=== PATIENT | female | born 1940 | race Caucasian/White ===

== ENCOUNTER → 2016-04-24 | Outpatient (CLI) | payer MEDICARE, BC | LOC: MW.CHIM 08:00 | PROVIDERS: ATTEND Internal Medicine | DX: F03.90 Unspecified dementia, unspecified severity, without behavioral disturbance, psychotic disturbance, mood disturbance, and anxiety (principal); F32.9 Major depressive disorder, single episode, unspecified; F41.9 Anxiety disorder, unspecified; H00.016 Hordeolum externum left eye, unspecified eyelid | CPT/HCPCS: 99214 ==

== ENCOUNTER → 2016-04-28 | Outpatient (CLI) | payer MEDICARE, BC | LOC: MW.CHIM 08:00 | PROVIDERS: ATTEND Internal Medicine | DX: J44.1 Chronic obstructive pulmonary disease with (acute) exacerbation (principal) | CPT/HCPCS: 96372; G0463; J1030 ==

== ENCOUNTER 2016-05-02 10:05 | Inpatient (IN) | payer MEDICARE, BC ==
[2016-05-02] MEDS ORDERED: Sodium Chloride 0.9% 2.5 ML Syringe FLUSH PRN (10:26)
[2016-05-02] MEDS ORDERED: Sodium Chloride 0.9% 10 ML Syringe FLUSH PRN (10:26)
[2016-05-02] MEDS ORDERED: Albuterol/Ipratropium 3.0-0.5 MG/3 ML Neb Soln NEB ONE (10:26)
--- NOTE | 2016-05-02 10:33 | EDM.PDOC ---
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 She has had a cough for several days which she feels that she's congested with but can't get the phlegm up. She doesn't feel more short of breath and she has oxygen at home to use when necessary. She has nebulizer treatments and also takes theophylline. Patient denies any cardiac history and has no chest pain she has no sore throat no runny nose no nausea or vomiting or abdominal pain. She did have 2 loose stools last evening but none today. She has no urinary complaints no rashes and she is not dizzy or lightheaded. The patient did get her influenza shot this year in November but her daughter states that she has had influenza as has other family members and that is a concern. Review of systems: As per history of present illness and below otherwise all systems reviewed and negative. Past medical history: As per history of present illness and as reviewed below otherwise noncontributory. Surgical history: As per history of present illness and as reviewed below otherwise noncontributory. Social history: No reported history of drug or alcohol abuse. Family history: As per history of present illness and as reviewed below otherwise noncontributory. Physical exam: General: Well-developed well-nourished female who speaks clearly without breathlessness or nasal quality to voice. Vital signs been reviewed by me. HEENT: Atraumatic, normocephalic, pupils reactive, negative for conjunctival pallor or scleral icterus, mucous membranes moist, throat clear, neck supple, nontender, trachea midline. No cervical adenopathy no thyromegaly Lungs: Somewhat tight air exchange more in the bases with some coarse breath sounds and scattered wheezes but no work or breathing or sensory muscle use breath sounds equal bilaterally, chest nontender. Heart: S1S2, regular, negative for clicks, rubs, or JVD. Abdomen: Soft, nondistended, nontender. Negative for masses or hepatosplenomegaly. Negative for costovertebral tenderness. Skin: Normal turgor no evidence of any rashes or lesions visibly Genitourinary: Deferred. Rectal: Deferred. Extremities: Atraumatic, negative for cords or calf pain. Neurovascular unremarkable. Neuro: Awake, alert, oriented. Cranial nerves II through XII unremarkable. Cerebellum unremarkable. Motor and sensory unremarkable throughout. Exam nonfocal. Diagnostics: Chest x-ray CBC CMP lactic acid blood cultures UA urine culture if indicated influenza swab Therapeutics: Duo neb IV O2 monitor Solu- Medrol I discussed with the patient and family at bedside testing results and that with the patient's COPD, mild hypoxia on admission 92%, and influenza B with his intractable spastic cough we will pursue observation admission. I will discuss the case with Dr. Shetty. 1228: Case was discussed with who accepts the patient for admission and the patient is agreeable. Impression: Influenza B with COPD exacerbation and mild hypoxia Definitive disposition and diagnosis as appropriate pending reevaluation and review of above. - Related Data Allergies/ADRs: Allergies Allergy/AdvReac Type Severity Reaction Status Date / Time cetirizine HCl [From Zyrtec] Allergy Other Verified 10/22/15 13:24 haloperidol [From Haldol] Allergy Change Verified 10/22/15 13:24 Mental Status haloperidol lactate Allergy Change Verified 10/22/15 13:24 [From Haldol] Mental Status Latex, Natural Rubber Allergy Other Verified 10/22/15 13:24 levofloxacin [From Levaquin] Allergy Other Verified 10/22/15 13:24 lorazepam [From Ativan] Allergy Respiratory Verified 10/22/15 13:24 Depression morphine Allergy Respiratory Verified 10/22/15 13:24 Depression Home Meds: Home Meds ALPRAZolam [Xanax] 0.5 tab PO ASDIRECTED PRN 07/17/14 [History] Albuterol [Ventolin HFA] 8 gm INH Q6H PRN 07/17/14 [History] Albuterol/Ipratropium [DuoNeb 3.0-0.5 MG/3 ML] 3 ml NEB Q6HRRT PRN 07/17/14 [ History] Ca Carbonate/Vitamin D3/Vit K [Citracal Soft Chew] 1 each PO BEDTIME 07/17/14 [ History] Fluticasone/Salmeterol [Advair 250-50] 1 puff INH BID PRN 07/17/14 [History] Lansoprazole [Prevacid] 15 mg PO DAILY 07/17/14 [History] Memantine HCl [Namenda Xr] 21 mg PO DAILY 07/17/14 [History] Montelukast [Singulair] 10 mg PO BEDTIME 07/17/14 [History] Multivit-Min/FA/Lycopene/Lut [Centrum Silver Tablet] 1 each PO DAILY 07/17/14 [ History] Nictrol Inhaler 1 puff INH ASDIRECTED PRN 07/17/14 [History] Sertraline [Zoloft] 75 mg PO DAILY 07/17/14 [History] Theophylline [Theophylline Anhydrous] 200 mg PO DAILY 07/17/14 [History] Past Medical History Respiratory History: Reports: Asthma, COPD, Pneumonia, recurrent Gastrointestinal History: Reports: Other (see below) Other Gastrointestinal History: acid reflux 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: Neurological History: Reports: Alzheimers disease Psychiatric History: Reports: Anxiety, Depression - Infectious Disease History Infectious Disease History: Reports: Chicken pox - Past Surgical History Head Surgeries/Procedures: Reports: None HEENT Surgical History: Reports: Tonsillectomy Other GI Surgeries/Procedures: hemmorhoid Social & Family History - Family History Cardiac: Reports: [place] Psychiatric: Reports: Anxiety, Depression Endocrine/Metabolic: Reports: Diabetes, type II - Tobacco Use Smoking Status *Q: Former Smoker Years of Tobacco use: 30 Used Tobacco, but Quit: Yes Month Tobacco Last Used: 1yr Second Hand Smoke Exposure: No - Caffeine Use Caffeine Use: Reports: Coffee - Recreational Drug Use Recreational Drug Use: No - Living Situation & Occupation 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 ED EXAM, GENERAL - Physical Exam Exam: See Below (See dictation) Course - Vital Signs Last Recorded V/S: Last Vital Signs Temp 37.1 C 05/02/16 10:14 Pulse 100 05/02/16 10:14 Resp 18 05/02/16 10:14 BP 139/64 05/02/16 10:14 Pulse Ox 95 05/02/16 10:43 - Orders/Labs/Meds Orders: Active Orders 24 hr Category Date Time Status Patient Status [ADT] Stat ADT 05/02/16 12:27 Ordered Oxygen Therapy, ED [RC] ASDIRECTED Care 05/02/16 10:22 Active Pulse Oximetry [RC] ASDIRECTED Care 05/02/16 10:22 Active RT Aerosol Therapy [RC] ASDIRECTED Care 05/02/16 10:26 Active Chest 2V [CR] Stat Exams 05/02/16 10:27 Taken CULTURE BLOOD [BC] Stat Lab 05/02/16 10:39 Received CULTURE BLOOD [BC] Stat Lab 05/02/16 10:40 Received Sodium Chloride 0.9% [Saline Flush] Med 05/02/16 10:26 Active 10 ml FLUSH ASDIRECTED PRN Sodium Chloride 0.9% [Saline Flush] Med 05/02/16 10:26 Active 2.5 ml FLUSH ASDIRECTED PRN Blood Culture x2 Reflex Set [OM.PC] Stat Oth 05/02/16 10:29 Ordered Saline Lock Insert [OM.PC] Stat Oth 05/02/16 10:22 Ordered Medication Orders Sodium Chloride (Saline Flush) 10 ml FLUSH ASDIRECTED PRN PRN Reason: Keep Vein Open Last Admin: 05/02/16 12:22 Dose: 10 ml Sodium Chloride (Saline Flush) 2.5 ml FLUSH ASDIRECTED PRN PRN Reason: Keep Vein Open Last Admin: 05/02/16 12:22 Dose: 2.5 ml Labs: Laboratory Tests 05/02/16 05/02/16 05/02/16 Range/Units 10:40 10:40 10:40 WBC 6.00 (4.0-11.0) K/uL RBC 4.85 (4.30-5.90) M/uL Hgb 14.3 (12.0-16.0) g/dL Hct 43.4 (36.0-46.0) % MCV 89.5 (80.0-98.0) fL MCH 29.5 (27.0-32.0) pg MCHC 32.9 (31.0-37.0) g/dL RDW Std Deviation 48.1 (28.0-62.0) fl RDW Coeff of Nikhil 15 (11.0-15.0) % Plt Count 176 (150-400) K/uL MPV 9.30 (7.40-12.00) fL Neut % (Auto) 80.3 H (48.0-80.0) % Lymph % (Auto) 9.7 L (16.0-40.0) % Wetzel % (Auto) 9.8 (0.0-15.0) % Eos % (Auto) 0.0 (0.0-7.0) % Baso % (Auto) 0.2 (0.0-1.5) % Neut # (Auto) 4.8 (1.4-5.7) K/uL Lymph # (Auto) 0.6 (0.6-2.4) K/uL Wetzel # (Auto) 0.6 (0.0-0.8) K/uL Eos # (Auto) 0.0 (0.0-0.7) K/uL Baso # (Auto) 0.0 (0.0-0.1) K/uL Nucleated RBC % 0.0 /100WBC Nucleated RBCs # 0 K/uL Lactate 1.6 (0.20-2.00) mmol/L Sodium 140 (136-146) mmol/L Potassium 3.7 (3.5-5.1) mmol/L Chloride 106 (98-110) mmol/L Carbon Dioxide 21 (21-31) mmol/L BUN 15 (6.0-23.0) mg/dL Creatinine 1.0 (0.6-1.5) mg/dL Est Cr Clr Drug Dosing 37.85 mL/min Estimated GFR (MDRD) 53.9 ml/min Glucose 96 (60-110) mg/dL Calcium 8.5 L (8.8-10.8) mg/dL Total Bilirubin 0.4 (0.1-1.5) mg/dL AST 32 (5-40) IU/L ALT 25 (8-54) IU/L Alkaline Phosphatase 87 (40-150) Total Protein 7.4 (6.0-8.0) g/dL Albumin 4.3 (3.4-4.8) g/dL Globulin 3.1 (2.0-3.5) g/dL Albumin/Globulin Ratio 1.4 (1.3-2.8) Meds: Medications Generic Name Dose Route Start Last Admin Trade Name Freq PRN Reason Stop Dose Admin Sodium Chloride 10 ml 05/02/16 10:26 05/02/16 12:22 Saline Flush FLUSH 10 ml ASDIRECTED PRN Administration Keep Vein Open Sodium Chloride 2.5 ml 05/02/16 10:26 05/02/16 12:22 Saline Flush FLUSH 2.5 ml ASDIRECTED PRN Administration Keep Vein Open Discontinued Medications Generic Name Dose Route Start Last Admin Trade Name Freq PRN Reason Stop Dose Admin Albuterol/Ipratropium 3 ml 05/02/16 10:26 05/02/16 10:43 Duoneb 3.0-0.5 Mg/3 Ml NEB 05/02/16 10:27 3 ml ONETIME ONE Administration Methylprednisolone Sodium Succinate 125 mg 05/02/16 12:07 05/02/16 12:22 Solu-Medrol IVPUSH 05/02/16 12:08 125 mg ONETIME ONE Administration Oseltamivir Phosphate 75 mg 05/02/16 12:08 05/02/16 12:22 Tamiflu PO 05/02/16 12:09 75 mg ONETIME ONE Administration Departure - Departure Time of Disposition: 12:29 Disposition: Refer to Observation Condition: good Clinical Impression: COPD with exacerbation, Influenza B - My Orders Last 24 Hours: My Active Orders 05/02/16 10:22 Oxygen Therapy, ED [RC] ASDIRECTED Pulse Oximetry [RC] ASDIRECTED Saline Lock Insert [OM.PC] Stat 05/02/16 10:26 RT Aerosol Therapy [RC] ASDIRECTED Sodium Chloride 0.9% [Saline Flush] 10 ml FLUSH ASDIRECTED PRN Sodium Chloride 0.9% [Saline Flush] 2.5 ml FLUSH ASDIRECTED PRN 05/02/16 10:27 Chest 2V [CR] Stat 05/02/16 10:29 Blood Culture x2 Reflex Set [OM.PC] Stat 05/02/16 10:39 CULTURE BLOOD [BC] Stat 05/02/16 10:40 CULTURE BLOOD [BC] Stat 05/02/16 12:27 Patient Status [ADT] Stat - Assessment/Plan Last 24 Hours: My Active Orders 05/02/16 10:22 Oxygen Therapy, ED [RC] ASDIRECTED Pulse Oximetry [RC] ASDIRECTED Saline Lock Insert [OM.PC] Stat 05/02/16 10:26 RT Aerosol Therapy [RC] ASDIRECTED Sodium Chloride 0.9% [Saline Flush] 10 ml FLUSH ASDIRECTED PRN Sodium Chloride 0.9% [Saline Flush] 2.5 ml FLUSH ASDIRECTED PRN 05/02/16 10:27 Chest 2V [CR] Stat 05/02/16 10:29 Blood Culture x2 Reflex Set [OM.PC] Stat 05/02/16 10:39 CULTURE BLOOD [BC] Stat 05/02/16 10:40 CULTURE BLOOD [BC] Stat 05/02/16 12:27 Patient Status [ADT] Stat
[2016-05-02] MEDS ORDERED: methylPREDNISolone Sodium Succinate 125 MG/2 ML SDV IVPUSH ONE (12:07)
[2016-05-02] MEDS ORDERED: Oseltamivir 75 MG Cap PO ONE (12:08)
[2016-05-02] MEDS ORDERED: Benzonatate 100 MG Cap PO ONE (12:36)
[2016-05-02] MEDS ORDERED: Benzonatate 100 MG Cap PO PRN (15:17)
--- NOTE | 2016-05-02 15:17 | PCM.HP ---
H&P History of Present Illness - General Date of Service: 05/02/16 Admit Problem/Dx: Admission Diagnosis/Problem Admission Diagnosis/Problem COPD, Moderate chronic obstructive pulmonary disease - History of Present Illness Initial Comments - Free Text/Narative: she presented with dyspnea, wheezing and cough as per Dr Jackson's note. Generalized Pain Score (Numeric/FACES): 0 - Related Data Allergies/Adverse Reactions: Allergies Allergy/AdvReac Type Severity Reaction Status Date / Time cetirizine HCl [From Zyrtec] Allergy Other Verified 10/22/15 13:24 haloperidol [From Haldol] Allergy Change Verified 10/22/15 13:24 Mental Status haloperidol lactate Allergy Change Verified 10/22/15 13:24 [From Haldol] Mental Status Latex, Natural Rubber Allergy Other Verified 10/22/15 13:24 levofloxacin [From Levaquin] Allergy Other Verified 10/22/15 13:24 lorazepam [From Ativan] Allergy Respiratory Verified 10/22/15 13:24 Depression morphine Allergy Respiratory Verified 10/22/15 13:24 Depression Home Medications: Home Meds ALPRAZolam [Xanax] 0.25 - 0.5 mg PO DAILY PRN 07/17/14 [History] Albuterol [Ventolin HFA] 2 puff INH Q6H PRN 07/17/14 [History] Albuterol/Ipratropium [DuoNeb 3.0-0.5 MG/3 ML] 3 ml NEB Q6HRRT PRN 07/17/14 [ History] Ca Carbonate/Vitamin D3/Vit K [Citracal Soft Chew] 1 each PO BEDTIME 07/17/14 [ History] Fluticasone/Salmeterol [Advair 250-50] 1 puff INH BID 07/17/14 [History] Lansoprazole [Prevacid] 15 mg PO DAILY 07/17/14 [History] Memantine HCl [Namenda Xr] 21 mg PO DAILY 07/17/14 [History] Montelukast [Singulair] 10 mg PO BEDTIME 07/17/14 [History] Multivit-Min/FA/Lycopene/Lut [Centrum Silver Tablet] 1 each PO DAILY 07/17/14 [ History] Sertraline [Zoloft] 75 mg PO DAILY 07/17/14 [History] Theophylline [Theophylline Anhydrous] 200 mg PO DAILY 07/17/14 [History] Benzonatate [Tessalon Perles] 100 mg PO TID PRN 05/02/16 [History] Donepezil [Aricept] 10 mg PO BEDTIME 05/02/16 [History] Fexofenadine [Joyce] 60 mg PO DAILY 05/02/16 [History] Fluticasone Propionate 1 spray NS DAILY PRN 05/02/16 [History] Melatonin 3 mg PO BEDTIME 05/02/16 [History] Nicotine [Nicotrol NS] 1 spray NS Q6H PRN 05/02/16 [History] Past Medical History Respiratory History: Reports: Asthma, COPD, Pneumonia, recurrent Gastrointestinal History: Reports: Other (see below) Other Gastrointestinal History: acid reflux 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: Neurological History: Reports: Alzheimers disease Psychiatric History: Reports: Anxiety, Depression - Infectious Disease History Infectious Disease History: Reports: Chicken pox - Past Surgical History Head Surgeries/Procedures: Reports: None HEENT Surgical History: Reports: Tonsillectomy Other GI Surgeries/Procedures: hemmorhoid Social & Family History - Family History Cardiac: Reports: [place] Psychiatric: Reports: Anxiety, Depression Endocrine/Metabolic: Reports: Diabetes, type II - Tobacco Use Years of Tobacco use: 30 Used Tobacco, but Quit: Yes Month Tobacco Last Used: 1yr Second Hand Smoke Exposure: No - Caffeine Use Caffeine Use: Reports: Coffee - Recreational Drug Use Recreational Drug Use: No - Living Situation & 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 Exam - Exam Exam: See Below - Vital Signs Vital Signs: Last Vital Signs Temp 97.8 F 05/02/16 13:15 Pulse 86 05/02/16 13:15 Resp 18 05/02/16 13:15 BP 145/62 H 05/02/16 13:15 Pulse Ox 95 05/02/16 13:15 Weight: 68.084 kg - Exam General: alert, cooperative. No: sedated, lethargic HEENT: Conjunctiva clear, EOMI Neck: supple, trachea midline Lungs: Wheezing Cardiovascular: regular rate, regular rhythm Abdomen: soft. No: tenderness (Female) Exam: Deferred Extremities: No: edema Neurological: normal speech (normal vocalization but confused) Neuro Extensive - Mental Status: No: normal cognition (she is confused regarding her situation . ) Neuro Extensive - Motor, Sensory, Reflexes: No: facial palsy (L), facial palsy ( R) - Patient Data Result Diagrams: 05/02/16 10:40 05/02/16 10:40 *Q Meaningful Use (ADM) - VTE *Q VTE Criteria *Q: - Stroke *Q Stroke Criteria *Q: - AMI *Q AMI Criteria *Q: - Problem List (1) COPD exacerbation SNOMED Code(s): 071703676, 465281442 ICD Code: J44.1 - CHRONIC OBSTRUCTIVE PULMONARY DISEASE W (ACUTE) EXACERBATION Status: Acute Current Visit: Yes (2) Influenza B SNOMED Code(s): 27038772 ICD Code: J10.1 - FLU DUE TO OTH IDENT INFLUENZA VIRUS W OTH RESP MANIFEST Status: Acute Current Visit: Yes Problem List Initiated/Reviewed/Updated: Yes Orders Last 24hrs: Medication Orders Sodium Chloride (Saline Flush) 10 ml FLUSH ASDIRECTED PRN PRN Reason: Keep Vein Open Last Admin: 05/02/16 12:22 Dose: 10 ml Sodium Chloride (Saline Flush) 2.5 ml FLUSH ASDIRECTED PRN PRN Reason: Keep Vein Open Last Admin: 05/02/16 12:22 Dose: 2.5 ml Assessment/Plan Comment:: admit to observation see orders.
[2016-05-02] MEDS ORDERED: LORazepam 2 MG/ML MDV IVPUSH PRN (15:19)
[2016-05-02] MEDS ORDERED: Bisacodyl 5 MG Tab PO PRN (15:36)
[2016-05-02] MEDS ORDERED: Acetaminophen 325 MG Tab PO PRN (15:36)
[2016-05-02] MEDS ORDERED: Ondansetron 4 MG Tab.DIS PO PRN (15:36)
[2016-05-02] MEDS ORDERED: Levofloxacin/Dextrose 5%-Water 500 MG in Premix Bag 1 BAG IV SCH (15:45)
[2016-05-02] MEDS: Oseltamivir Phosphate 30 MG Capsule PO SCH (15:55)
[2016-05-02] MEDS: cefTRIAXone 1 GM in Premix Bag 1 BAG IV SCH (15:56)
[2016-05-02] MEDS: Multivitamins with Iron/Calcium/Folic Acid/Minerals Tab PO SCH (15:59)
[2016-05-02] MEDS ORDERED: Oseltamivir Phosphate 30 MG Capsule PO SCH (16:00)
[2016-05-02] MEDS: Azithromycin 500 MG in Sodium Chloride 0.9% 250 ML IV SCH (16:43)
[2016-05-02] MEDS: Albuterol/Ipratropium 3.0-0.5 MG/3 ML Neb Soln NEB SCH ×2 (18:47→21:27)
[2016-05-02] MEDS: methylPREDNISolone Sodium Succinate 125 MG/2 ML SDV IVPUSH SCH (20:20)
[2016-05-02] MEDS: Melatonin 3 MG Tab PO SCH (20:21)
[2016-05-02] MEDS ORDERED: Donepezil 10 MG Tab PO SCH (21:00)
[2016-05-02] MEDS ORDERED: Temazepam 15 MG Cap PO PRN (21:00)
[2016-05-02] MEDS: Fluticasone/Salmeterol 250-50 MCG Inhalation Powder 14/Diskus INH SCH (21:28)
[2016-05-03] MEDS: Albuterol/Ipratropium 3.0-0.5 MG/3 ML Neb Soln NEB SCH ×6 (02:01→21:05)
[2016-05-03] MEDS: methylPREDNISolone Sodium Succinate 125 MG/2 ML SDV IVPUSH SCH ×3 (05:51→21:40)
[2016-05-03 06:37] LABS: CHLORIDE,CL 109 mmol/L (98-110); SODIUM,NA 142 mmol/L (136-146)
[2016-05-03] MEDS ORDERED: MEMANTINE HCL 21 MG PO SCH (09:00)
[2016-05-03] MEDS ORDERED: Theophylline 200 MG Tab.ER PO SCH (09:00)
[2016-05-03] MEDS ORDERED: Sertraline 25 MG Tab PO SCH (09:00)
[2016-05-03] MEDS: Fluticasone/Salmeterol 250-50 MCG Inhalation Powder 14/Diskus INH SCH ×2 (09:54→21:05)
[2016-05-03] MEDS: Multivitamins with Iron/Calcium/Folic Acid/Minerals Tab PO SCH (10:10)
[2016-05-03] MEDS: Lansoprazole 30 MG Orally Disintegrating Tab.CR PO SCH (10:11)
[2016-05-03] MEDS: Oseltamivir Phosphate 30 MG Capsule PO SCH (10:11)
[2016-05-03] MEDS: Theophylline 300 MG Tab.ER PO SCH (10:53)
[2016-05-03] MEDS: MEMANTINE HCL 21 MG PO SCH (11:06)
[2016-05-03] MEDS: Donepezil 10 MG Tab PO SCH (11:07)
[2016-05-03] MEDS ORDERED: ALPRAZolam 0.25 MG Tab PO PRN (14:17)
--- NOTE | 2016-05-03 14:20 | PCM.PN ---
- General Info Date of Service: 05/03/16 Subjective Update: she is feeling some improvement now. - Patient Data Vitals - most recent: Last Vital Signs Temp 96.0 F 05/03/16 12:00 Pulse 89 05/03/16 12:00 Resp 22 H 05/03/16 12:00 BP 126/57 L 05/03/16 12:00 Pulse Ox 94 L 05/03/16 12:00 Weight - most recent: 68.084 kg I&O - last 24 hours: Intake & Output 05/02/16 05/03/16 05/03/16 22:59 06:59 14:59 Intake Total 700 200 Output Total 450 650 Balance 250 -450 Lab Results last 24 hrs: Laboratory Results - last 24 hr 05/03/16 05/03/16 Range/Units 05:40 05:40 WBC 3.55 L (4.0-11.0) K/uL RBC 4.41 (4.30-5.90) M/uL Hgb 12.7 (12.0-16.0) g/dL Hct 38.9 (36.0-46.0) % MCV 88.2 (80.0-98.0) fL MCH 28.8 (27.0-32.0) pg MCHC 32.6 (31.0-37.0) g/dL RDW Std Deviation 47.2 (28.0-62.0) fl RDW Coeff of Nikhil 15 (11.0-15.0) % Plt Count 188 (150-400) K/uL MPV 9.60 (7.40-12.00) fL Neut % (Auto) 83.4 H (48.0-80.0) % Lymph % (Auto) 11.5 L (16.0-40.0) % Gem % (Auto) 5.1 (0.0-15.0) % Eos % (Auto) 0.0 (0.0-7.0) % Baso % (Auto) 0.0 (0.0-1.5) % Neut # (Auto) 3.0 (1.4-5.7) K/uL Lymph # (Auto) 0.4 L (0.6-2.4) K/uL Gem # (Auto) 0.2 (0.0-0.8) K/uL Eos # (Auto) 0.0 (0.0-0.7) K/uL Baso # (Auto) 0.0 (0.0-0.1) K/uL Nucleated RBC % 0.0 /100WBC Nucleated RBCs # 0 K/uL Sodium 142 (136-146) mmol/L Potassium 3.7 (3.5-5.1) mmol/L Chloride 109 (98-110) mmol/L Carbon Dioxide 23 (21-31) mmol/L BUN 15 (6.0-23.0) mg/dL Creatinine 0.8 (0.6-1.5) mg/dL Est Cr Clr Drug Dosing 47.32 mL/min Estimated GFR (MDRD) > 60.0 ml/min Glucose 138 H (60-110) mg/dL Calcium 8.3 L (8.8-10.8) mg/dL Magnesium 1.9 (1.5-2.3) mEq/L Med Orders - Current: Current Medications Acetaminophen (Tylenol) 650 mg PO Q4H PRN PRN Reason: Pain (Mild 1-3)/fever Albuterol/Ipratropium (Duoneb 3.0-0.5 Mg/3 Ml) 3 ml NEB Q4HRRT COUNTS INCLUDE 234 BEDS AT THE [facility] Last Admin: 05/03/16 14:00 Dose: 3 ml Alprazolam (Xanax) 0.5 mg PO Q6H PRN PRN Reason: Anxiety Benzonatate (Tessalon Perles) 100 mg PO TID PRN PRN Reason: Cough Last Admin: 05/02/16 20:21 Dose: 100 mg Bisacodyl (Dulcolax) 5 mg PO DAILY PRN PRN Reason: Constipation Donepezil HCl (Aricept) 10 mg PO DAILY COUNTS INCLUDE 234 BEDS AT THE [facility] Last Admin: 05/03/16 11:07 Dose: 10 mg Azithromycin 500 mg/ Sodium (Chloride) 250 mls @ 250 mls/hr IV Q24H COUNTS INCLUDE 234 BEDS AT THE [facility] Last Admin: 05/02/16 16:43 Dose: 250 mls/hr Ceftriaxone Sodium/Dextrose 1 (gm/ Premix) 50 mls @ 100 mls/hr IV Q24H COUNTS INCLUDE 234 BEDS AT THE [facility] Last Admin: 05/02/16 15:56 Dose: 100 mls/hr Lansoprazole (Prevacid Solutab) 15 mg PO DAILY COUNTS INCLUDE 234 BEDS AT THE [facility] Last Admin: 05/03/16 10:11 Dose: 15 mg Melatonin (Melatonin) 3 mg PO BEDTIME COUNTS INCLUDE 234 BEDS AT THE [facility] Last Admin: 05/02/16 20:21 Dose: 3 mg Methylprednisolone Sodium Succinate (Solu-Medrol) 125 mg IVPUSH Q8HR COUNTS INCLUDE 234 BEDS AT THE [facility] Last Admin: 05/03/16 14:13 Dose: 125 mg Multivitamins/Minerals (Thera M Plus) 1 tab PO DAILY COUNTS INCLUDE 234 BEDS AT THE [facility] Last Admin: 05/03/16 10:10 Dose: 1 tab Ondansetron HCl (Zofran Odt) 4 mg PO Q4H PRN PRN Reason: nausea, able to take PO Oseltamivir Phosphate (Tamiflu) 75 mg PO BID COUNTS INCLUDE 234 BEDS AT THE [facility] Theophylline 300 Mg (Tab.Er) 1 each PO DAILY COUNTS INCLUDE 234 BEDS AT THE [facility] Last Admin: 05/03/16 10:53 Dose: Not Given Memantine Hcl 21 Mg (Cap) 1 each PO DAILY COUNTS INCLUDE 234 BEDS AT THE [facility] Last Admin: 05/03/16 11:06 Dose: 1 each Fluticasone/Salmeterol (Advair Diskus 250-50) 1 puff INH BID COUNTS INCLUDE 234 BEDS AT THE [facility] Last Admin: 05/03/16 09:54 Dose: 1 inhalation Sertraline HCl (Zoloft) 75 mg PO BEDTIME COUNTS INCLUDE 234 BEDS AT THE [facility] Sodium Chloride (Saline Flush) 10 ml FLUSH ASDIRECTED PRN PRN Reason: Keep Vein Open Last Admin: 05/02/16 12:22 Dose: 10 ml Sodium Chloride (Saline Flush) 2.5 ml FLUSH ASDIRECTED PRN PRN Reason: Keep Vein Open Last Admin: 05/02/16 12:22 Dose: 2.5 ml Temazepam (Restoril) 15 mg PO BEDTIME PRN PRN Reason: Sleep Discontinued Medications Albuterol/Ipratropium (Duoneb 3.0-0.5 Mg/3 Ml) 3 ml NEB ONETIME ONE Stop: 05/02/16 10:27 Last Admin: 05/02/16 10:43 Dose: 3 ml Benzonatate (Tessalon Perles) 200 mg PO ONETIME ONE Stop: 05/02/16 12:37 Last Admin: 05/02/16 12:58 Dose: 200 mg Donepezil HCl (Aricept) 10 mg PO BEDTIME COUNTS INCLUDE 234 BEDS AT THE [facility] Last Admin: 05/02/16 20:20 Dose: 10 mg Levofloxacin/Dextrose 500 mg/ (Premix) 100 mls @ 100 mls/hr IV Q24H COUNTS INCLUDE 234 BEDS AT THE [facility] Lorazepam (Ativan) 0.5 mg IVPUSH Q4H PRN PRN Reason: Anxiety Memantine (Namenda Xr) 21 mg PO DAILY COUNTS INCLUDE 234 BEDS AT THE [facility] Last Admin: 05/03/16 11:02 Dose: Not Given Methylprednisolone Sodium Succinate (Solu-Medrol) 125 mg IVPUSH ONETIME ONE Stop: 05/02/16 12:08 Last Admin: 05/02/16 12:22 Dose: 125 mg Oseltamivir Phosphate (Tamiflu) 75 mg PO ONETIME ONE Stop: 05/02/16 12:09 Last Admin: 05/02/16 12:22 Dose: 75 mg Oseltamivir Phosphate (Oseltamivir Phosphate) 30 mg PO Q24H COUNTS INCLUDE 234 BEDS AT THE [facility] Oseltamivir Phosphate (Oseltamivir Phosphate) 30 mg PO BID COUNTS INCLUDE 234 BEDS AT THE [facility] Last Admin: 05/03/16 10:11 Dose: 30 mg Memantine Hcl 21 Mg (Cap) 1 each PO DAILY COUNTS INCLUDE 234 BEDS AT THE [facility] Sertraline HCl (Zoloft) 75 mg PO DAILY COUNTS INCLUDE 234 BEDS AT THE [facility] Last Admin: 05/03/16 11:03 Dose: Not Given Theophylline (Theophylline Anhydrous) 200 mg PO DAILY COUNTS INCLUDE 234 BEDS AT THE [facility] Last Admin: 05/03/16 10:23 Dose: 200 mg - Exam General: alert, cooperative Lungs: Rhonchi, Wheezing Cardiovascular: Regular Rate, Regular Rhythm Abdomen: no tenderness - Problem List & Annotations (1) COPD exacerbation SNOMED Code(s): 526183020, 453570895 Code(s): J44.1 - CHRONIC OBSTRUCTIVE PULMONARY DISEASE W (ACUTE) EXACERBATION Status: Acute Current Visit: Yes (2) Influenza B SNOMED Code(s): 52086196 Code(s): J10.1 - FLU DUE TO OTH IDENT INFLUENZA VIRUS W OTH RESP MANIFEST Status: Acute Current Visit: Yes (3) Dementia SNOMED Code(s): 76353080 Code(s): F03.90 - UNSPECIFIED DEMENTIA WITHOUT BEHAVIORAL DISTURBANCE Status: Acute Current Visit: Yes - Problem List Review Problem List Initiated/Reviewed/Updated: Yes - My Orders Last 24 Hours: My Active Orders 05/02/16 15:17 Benzonatate [Tessalon Perles] 100 mg PO TID PRN 05/02/16 15:21 ALPRAZolam [Xanax] 0.5 mg PO Q6H PRN 05/02/16 15:36 Oxygen Therapy [RC] PRN Vital Signs [RC] Q4H Acetaminophen [Tylenol] 650 mg PO Q4H PRN Bisacodyl [Dulcolax] 5 mg PO DAILY PRN Ondansetron [Zofran ODT] 4 mg PO Q4H PRN Resuscitation Status Routine 05/02/16 15:39 RT Aerosol Therapy [RC] ASDIRECTED 05/02/16 15:45 Multivitamins w-Iron/Ca/FA/Min [Thera M Plus] 1 tab PO DAILY 05/02/16 16:00 cefTRIAXone [Rocephin in Dextrose,Iso-Osm 1 GM/50 ML] 1 gm Premix Bag 1 bag IV Q24H 05/02/16 16:30 Azithromycin [Zithromax] 500 mg Sodium Chloride 0.9% [Normal Saline] 250 ml IV Q24H 05/02/16 18:00 Albuterol/Ipratropium [DuoNeb 3.0-0.5 MG/3 ML] 3 ml NEB Q4HRRT 05/02/16 20:00 methylPREDNISolone Sod Succ [Solu-MEDROL] 125 mg IVPUSH Q8HR 05/02/16 21:00 Fluticasone/Salmeterol [Advair Diskus 250-50] 1 puff INH BID Melatonin 3 mg PO BEDTIME Temazepam [Restoril] 15 mg PO BEDTIME PRN 05/02/16 Dinner Regular Diet [DIET] 05/03/16 09:00 Lansoprazole [Prevacid Solutab] 15 mg PO DAILY 05/03/16 10:54 Donepezil [Aricept] 10 mg PO DAILY 05/03/16 11:00 Patient's Own Medication [Ptom] 1 each PO DAILY Patient's Own Medication [Ptom] 1 each PO DAILY 05/03/16 14:17 ALPRAZolam [Xanax] 0.5 mg PO TID PRN 05/03/16 14:30 Theophylline 300 mg PO DAILY 05/03/16 21:00 Oseltamivir [Tamiflu] 75 mg PO BID Sertraline [Zoloft] 75 mg PO BEDTIME - Plan Plan:: admit to observation see orders. Cody Shetty MD 05/03/2016: see orders anticipate discharge within about 48 hours. Cody Shetty MD
[2016-05-03] MEDS ORDERED: THEOPHYLLINE 300 MG PO SCH (14:30)
[2016-05-03] MEDS: cefTRIAXone 1 GM in Premix Bag 1 BAG IV SCH (15:20)
[2016-05-03] MEDS: Azithromycin 500 MG in Sodium Chloride 0.9% 250 ML IV SCH (16:12)
[2016-05-03] MEDS: Benzonatate 100 MG Cap PO PRN (21:10)
[2016-05-03] MEDS: Melatonin 3 MG Tab PO SCH (21:40)
[2016-05-03] MEDS: Sertraline 25 MG Tab PO SCH (21:40)
[2016-05-03] MEDS: Oseltamivir 75 MG Cap PO SCH (21:41)
[2016-05-03] MEDS: Ondansetron 4 MG/2 ML SDV IVPUSH PRN (22:52)
[2016-05-04] MEDS: Albuterol/Ipratropium 3.0-0.5 MG/3 ML Neb Soln NEB SCH ×6 (01:08→21:20)
[2016-05-04] MEDS: methylPREDNISolone Sodium Succinate 125 MG/2 ML SDV IVPUSH SCH ×3 (05:51→22:03)
[2016-05-04 06:08] LABS: CHLORIDE,CL 108 mmol/L (98-110); SODIUM,NA 142 mmol/L (136-146)
[2016-05-04] MEDS ORDERED: MEMANTINE HCL 21 MG PO SCH (09:00)
[2016-05-04] MEDS: Fluticasone/Salmeterol 250-50 MCG Inhalation Powder 14/Diskus INH SCH ×2 (09:42→21:23)
[2016-05-04] MEDS ORDERED: Calcium Carbonate 500 MG Tab.Chew PO ONE (09:45)
[2016-05-04] MEDS: Multivitamins with Iron/Calcium/Folic Acid/Minerals Tab PO SCH (11:04)
[2016-05-04] MEDS: Oseltamivir 75 MG Cap PO SCH ×2 (11:04→22:03)
[2016-05-04] MEDS: Lansoprazole 30 MG Orally Disintegrating Tab.CR PO SCH (11:05)
[2016-05-04] MEDS: Donepezil 10 MG Tab PO SCH (11:05)
[2016-05-04] MEDS: Theophylline 300 MG Tab.ER PO SCH (11:08)
[2016-05-04] MEDS: MEMANTINE HCL 21 MG PO SCH (11:11)
--- NOTE | 2016-05-04 11:20 | PCM.PN ---
Addendum entered and electronically signed by Ravi Man MD 05/04/16 11:26 : Original Note: - General Info Date of Service: 05/04/16 Admission Dx/Problem (Free Text): Admission Diagnosis/Problem Admission Diagnosis/Problem COPD, Moderate chronic obstructive pulmonary disease Subjective Update: Feeling very tired and week this morning. States she did not sleep well last night. Breathing has improved and she feels it is close to her baseline. Eating very little no appetite. No other complaints. Functional Status: Reports: pain controlled, tolerating diet - Review of Systems General: Reports: Weakness, Fatigue, Malaise, Chills. Denies: Fever HEENT: Denies: headaches, sore throat Pulmonary: Reports: shortness of breath, cough, wheezing. Denies: pleuritic chest pain, hemoptysis Cardiovascular: Denies: Chest Pain, Palpitations, Edema Gastrointestinal: Denies: Abdominal pain, Nausea, Vomiting Genitourinary: Denies: dysuria, hematuria Musculoskeletal: Denies: neck pain, leg pain Skin: Denies: cyanosis Neurological: Reports: Confusion. Denies: Dizziness, Headache Psychiatric: Reports: confusion - Patient Data Vitals - most recent: Last Vital Signs Temp 36.8 C 05/04/16 08:00 Pulse 87 05/04/16 08:00 Resp 20 05/04/16 08:00 BP 137/69 05/04/16 08:00 Pulse Ox 92 L 05/04/16 08:00 Weight - most recent: 68.084 kg I&O - last 24 hours: Intake & Output 05/03/16 05/04/16 05/04/16 22:59 06:59 14:59 Intake Total 1050 100 Output Total 650 450 Balance 400 -350 Lab Results last 24 hrs: Laboratory Results - last 24 hr 05/04/16 05/04/16 Range/Units 05:35 05:35 WBC 5.66 (4.0-11.0) K/uL RBC 4.19 L (4.30-5.90) M/uL Hgb 12.0 (12.0-16.0) g/dL Hct 37.1 (36.0-46.0) % MCV 88.5 (80.0-98.0) fL MCH 28.6 (27.0-32.0) pg MCHC 32.3 (31.0-37.0) g/dL RDW Std Deviation 47.1 (28.0-62.0) fl RDW Coeff of Nikhil 15 (11.0-15.0) % Plt Count 195 (150-400) K/uL MPV 9.40 (7.40-12.00) fL Neut % (Auto) 83.3 H (48.0-80.0) % Lymph % (Auto) 11.0 L (16.0-40.0) % [place] % (Auto) 5.5 (0.0-15.0) % Eos % (Auto) 0.0 (0.0-7.0) % Baso % (Auto) 0.2 (0.0-1.5) % Neut # (Auto) 4.7 (1.4-5.7) K/uL Lymph # (Auto) 0.6 (0.6-2.4) K/uL [place] # (Auto) 0.3 (0.0-0.8) K/uL Eos # (Auto) 0.0 (0.0-0.7) K/uL Baso # (Auto) 0.0 (0.0-0.1) K/uL Nucleated RBC % 0.0 /100WBC Nucleated RBCs # 0 K/uL Sodium 142 (136-146) mmol/L Potassium 3.6 (3.5-5.1) mmol/L Chloride 108 (98-110) mmol/L Carbon Dioxide 22 (21-31) mmol/L BUN 22 (6.0-23.0) mg/dL Creatinine 0.9 (0.6-1.5) mg/dL Est Cr Clr Drug Dosing 42.06 mL/min Estimated GFR (MDRD) > 60.0 ml/min Glucose 153 H (60-110) mg/dL Calcium 8.6 L (8.8-10.8) mg/dL Med Orders - Current: Current Medications Acetaminophen (Tylenol) 650 mg PO Q4H PRN PRN Reason: Pain (Mild 1-3)/fever Albuterol/Ipratropium (Duoneb 3.0-0.5 Mg/3 Ml) 3 ml NEB Q4HRRT [facility] Last Admin: 05/04/16 10:42 Dose: 3 ml Alprazolam (Xanax) 0.5 mg PO Q6H PRN PRN Reason: Anxiety Alprazolam (Xanax) 0.5 mg PO TID PRN PRN Reason: Anxiety Benzonatate (Tessalon Perles) 200 mg PO TID PRN PRN Reason: Cough Last Admin: 05/03/16 21:10 Dose: 200 mg Bisacodyl (Dulcolax) 5 mg PO DAILY PRN PRN Reason: Constipation Donepezil HCl (Aricept) 10 mg PO DAILY [facility] Last Admin: 05/03/16 11:07 Dose: 10 mg Azithromycin 500 mg/ Sodium (Chloride) 250 mls @ 250 mls/hr IV Q24H [facility] Last Admin: 05/03/16 16:12 Dose: 250 mls/hr Ceftriaxone Sodium/Dextrose 1 (gm/ Premix) 50 mls @ 100 mls/hr IV Q24H [facility] Last Admin: 05/03/16 15:20 Dose: 100 mls/hr Lansoprazole (Prevacid Solutab) 15 mg PO DAILY [facility] Last Admin: 05/03/16 10:11 Dose: 15 mg Melatonin (Melatonin) 3 mg PO BEDTIME [facility] Last Admin: 05/03/16 21:40 Dose: 3 mg Methylprednisolone Sodium Succinate (Solu-Medrol) 125 mg IVPUSH Q8HR [facility] Last Admin: 05/04/16 05:51 Dose: 125 mg Multivitamins/Minerals (Thera M Plus) 1 tab PO DAILY [facility] Last Admin: 05/03/16 10:10 Dose: 1 tab Ondansetron HCl (Zofran) 4 mg IVPUSH Q4H PRN PRN Reason: Nausea/Vomiting Last Admin: 05/03/16 22:52 Dose: 4 mg Oseltamivir Phosphate (Tamiflu) 75 mg PO BID [facility] Last Admin: 05/03/16 21:41 Dose: 75 mg Theophylline 300 Mg (Tab.Er) 1 each PO DAILY [facility] Last Admin: 05/03/16 10:53 Dose: Not Given Memantine Hcl 21 Mg (Cap) 1 each PO DAILY [facility] Last Admin: 05/03/16 11:06 Dose: 1 each Fluticasone/Salmeterol (Advair Diskus 250-50) 1 puff INH BID [facility] Last Admin: 05/04/16 09:42 Dose: 1 inhalation Sertraline HCl (Zoloft) 75 mg PO BEDTIME [facility] Last Admin: 05/03/16 21:40 Dose: 75 mg Sodium Chloride (Saline Flush) 10 ml FLUSH ASDIRECTED PRN PRN Reason: Keep Vein Open Last Admin: 05/02/16 12:22 Dose: 10 ml Sodium Chloride (Saline Flush) 2.5 ml FLUSH ASDIRECTED PRN PRN Reason: Keep Vein Open Last Admin: 05/02/16 12:22 Dose: 2.5 ml Temazepam (Restoril) 15 mg PO BEDTIME PRN PRN Reason: Sleep Discontinued Medications Albuterol/Ipratropium (Duoneb 3.0-0.5 Mg/3 Ml) 3 ml NEB ONETIME ONE Stop: 05/02/16 10:27 Last Admin: 05/02/16 10:43 Dose: 3 ml Benzonatate (Tessalon Perles) 200 mg PO ONETIME ONE Stop: 05/02/16 12:37 Last Admin: 05/02/16 12:58 Dose: 200 mg Benzonatate (Tessalon Perles) 100 mg PO TID PRN PRN Reason: Cough Last Admin: 05/02/16 20:21 Dose: 100 mg Calcium Carbonate/Glycine (Tums) 1,000 mg PO ONETIME ONE Stop: 05/04/16 09:46 Donepezil HCl (Aricept) 10 mg PO BEDTIME [facility] Last Admin: 05/02/16 20:20 Dose: 10 mg Levofloxacin/Dextrose 500 mg/ (Premix) 100 mls @ 100 mls/hr IV Q24H [facility] Lorazepam (Ativan) 0.5 mg IVPUSH Q4H PRN PRN Reason: Anxiety Memantine (Namenda Xr) 21 mg PO DAILY [facility] Last Admin: 05/03/16 11:02 Dose: Not Given Methylprednisolone Sodium Succinate (Solu-Medrol) 125 mg IVPUSH ONETIME ONE Stop: 05/02/16 12:08 Last Admin: 05/02/16 12:22 Dose: 125 mg Non-Formulary Medication (Theophylline) 300 mg PO DAILY [facility] Ondansetron HCl (Zofran Odt) 4 mg PO Q4H PRN PRN Reason: nausea, able to take PO Oseltamivir Phosphate (Tamiflu) 75 mg PO ONETIME ONE Stop: 05/02/16 12:09 Last Admin: 05/02/16 12:22 Dose: 75 mg Oseltamivir Phosphate (Oseltamivir Phosphate) 30 mg PO Q24H [facility] Oseltamivir Phosphate (Oseltamivir Phosphate) 30 mg PO BID [facility] Last Admin: 05/03/16 10:11 Dose: 30 mg Memantine Hcl 21 Mg (Cap) 1 each PO DAILY [facility] Sertraline HCl (Zoloft) 75 mg PO DAILY [facility] Last Admin: 05/03/16 11:03 Dose: Not Given Theophylline (Theophylline Anhydrous) 200 mg PO DAILY [facility] Last Admin: 05/03/16 10:23 Dose: 200 mg - Exam Quality Assessment: supplemental oxygen, DVT prophylaxis General: alert, oriented, cooperative, no acute distress HEENT: Pupils equal, Pupils reactive, EOMI, Mucous membr. moist/pink Neck: supple, trachea midline Lungs: Normal respiratory effort, Decreased breath sounds, Crackles, Wheezing Cardiovascular: Regular Rate, Regular Rhythm Abdomen: bowel sounds present, soft, no tenderness, no distension Back Exam: normal inspection Extremities: no edema, normal pulses, no tenderness/swelling, no calf tenderness Peripheral Pulses: 2+: radial (L), radial (R), posterior tibial (L), posterior tibial (R), dorsalis pedis (L), dorsalis pedis (R) Skin: warm, dry, intact Neurological: no new focal deficit Psy/Mental Status: alert, normal affect, normal mood - Problem List & Annotations (1) COPD exacerbation SNOMED Code(s): 422366535, 127734290 Code(s): J44.1 - CHRONIC OBSTRUCTIVE PULMONARY DISEASE W (ACUTE) EXACERBATION Status: Acute Priority: High Current Visit: Yes (2) Influenza B SNOMED Code(s): 22818689 Code(s): J10.1 - FLU DUE TO OTH IDENT INFLUENZA VIRUS W OTH RESP MANIFEST Status: Acute Priority: High Current Visit: Yes - Problem List Review Problem List Initiated/Reviewed/Updated: Yes - My Orders Last 24 Hours: My Active Orders 05/04/16 10:01 Transfer Patient (Change bed) [ADT] Routine - Plan Plan:: 75 yo female admitted on 05/02/16 for COPD exacerbation and influenza B. COPD exacerbation: Still having wheezing and crackles on exam today. Will cont. duonebs and IV solumedrol. Patient has severe COPD and continues to have exacerbation. Will transfer to inpatient today. Cont. Azithromycin Influenza B: Cont. Tamiflu. Dispo: 1-2 days pending. Patient is on Zanax and prevacid will in house but not on these medications at home. May not need them on discharge.
[2016-05-04] MEDS: cefTRIAXone 1 GM in Premix Bag 1 BAG IV SCH (16:22)
--- NOTE | 2016-05-04 16:50 | CR ---
EXAM DATE: 05/02/16 PATIENT'S AGE: 75 Patient: ALEXA SALVADOR Facility: [place], [place] Site . Site : [id number] Study: XRay Chest [id number] 11:23:46 AM Ordering Physician: Manuel Perry Final Report: INDICATION: Pain. Shortness breath. TECHNIQUE: Two-view chest. COMPARISON: February 18, 2015. FINDINGS: Calcified granuloma posteromedial right lower lobe. Clear left lung. Normal heart size. Pulmonary vascularity is within normal limits. Mild left hilar prominence unchanged may reflect a prominent pulmonary artery. IMPRESSION: 1. No acute cardiopulmonary process identified. 2. Mildly prominent left hilum may reflect a prominent pulmonary artery. Dictated by Isaias Kamara MD @ 05/02/2016 11:45:06 AM Dictated by: Isaias Kamara MD @ 05/02/2016 11:45:11 (Electronic Signature) Report Signed by Proxy and Original Signed Document filed in the Medical Record. MTDD
[2016-05-04] MEDS: Azithromycin 500 MG in Sodium Chloride 0.9% 250 ML IV SCH (17:57)
[2016-05-04] MEDS: Benzonatate 100 MG Cap PO PRN (19:41)
[2016-05-04] MEDS: Sertraline 25 MG Tab PO SCH (22:03)
[2016-05-04] MEDS: Melatonin 3 MG Tab PO SCH (22:04)
[2016-05-05] MEDS: Albuterol/Ipratropium 3.0-0.5 MG/3 ML Neb Soln NEB SCH ×7 (04:29→22:34)
[2016-05-05] MEDS: methylPREDNISolone Sodium Succinate 125 MG/2 ML SDV IVPUSH SCH ×3 (05:31→21:00)
[2016-05-05] MEDS: Donepezil 5 MG Tab PO SCH (08:52)
[2016-05-05] MEDS: Oseltamivir 75 MG Cap PO SCH ×2 (08:52→20:51)
[2016-05-05] MEDS: Multivitamins with Iron/Calcium/Folic Acid/Minerals Tab PO SCH (08:52)
[2016-05-05] MEDS: Lansoprazole 30 MG Orally Disintegrating Tab.CR PO SCH (08:53)
[2016-05-05] MEDS: Theophylline 300 MG Tab.ER PO SCH (08:55)
[2016-05-05] MEDS: Benzonatate 100 MG Cap PO PRN ×2 (08:57→20:51)
[2016-05-05] MEDS: MEMANTINE HCL 21 MG PO SCH (08:57)
[2016-05-05 09:05] LABS: CHLORIDE,CL 107 mmol/L (98-110); SODIUM,NA 141 mmol/L (136-146)
[2016-05-05] MEDS: Fluticasone/Salmeterol 250-50 MCG Inhalation Powder 14/Diskus INH SCH ×2 (10:12→20:23)
--- NOTE | 2016-05-05 11:24 | PCM.PN ---
- General Info Date of Service: 05/05/16 Admission Dx/Problem (Free Text): Admission Diagnosis/Problem Admission Diagnosis/Problem COPD, Moderate chronic obstructive pulmonary disease Subjective Update: Doing better this morning but still feeling weak and short of breath. She is eating but has had decreased appetite. No chest pain or palpitations. Would like to stay one more day secondary to her weakness and shortness of breath. Functional Status: Reports: pain controlled, tolerating diet, ambulating, incentive spirometry - Review of Systems General: Reports: Weakness, Fatigue, Malaise. Denies: Fever HEENT: Denies: contact lenses, dysphasia Pulmonary: Reports: shortness of breath, cough, wheezing. Denies: pleuritic chest pain, hemoptysis Cardiovascular: Denies: Chest Pain, Palpitations, Edema Gastrointestinal: Denies: Abdominal pain, Constipation Genitourinary: Denies: dysuria, hematuria Musculoskeletal: Denies: neck pain, leg pain Skin: Denies: cyanosis Neurological: Denies: Confusion, Dizziness Psychiatric: Denies: confusion - Patient Data Vitals - most recent: Last Vital Signs Temp 36.2 C 05/05/16 07:54 Pulse 88 05/05/16 07:54 Resp 20 05/05/16 07:54 BP 138/76 05/05/16 07:54 Pulse Ox 100 05/05/16 07:54 Weight - most recent: 68.084 kg I&O - last 24 hours: Intake & Output 05/04/16 05/05/16 05/05/16 22:59 06:59 14:59 Intake Total 400 100 Output Total 400 400 Balance 0 -300 Lab Results last 24 hrs: Laboratory Results - last 24 hr 05/05/16 05/05/16 Range/Units 08:35 08:35 WBC 5.42 (4.0-11.0) K/uL RBC 4.44 (4.30-5.90) M/uL Hgb 12.8 (12.0-16.0) g/dL Hct 39.4 (36.0-46.0) % MCV 88.7 (80.0-98.0) fL MCH 28.8 (27.0-32.0) pg MCHC 32.5 (31.0-37.0) g/dL RDW Std Deviation 47.9 (28.0-62.0) fl RDW Coeff of Nikhil 15 (11.0-15.0) % Plt Count 190 (150-400) K/uL MPV 9.10 (7.40-12.00) fL Neut % (Auto) 90.6 H (48.0-80.0) % Lymph % (Auto) 7.2 L (16.0-40.0) % [place] % (Auto) 2.2 (0.0-15.0) % Eos % (Auto) 0.0 (0.0-7.0) % Baso % (Auto) 0.0 (0.0-1.5) % Neut # (Auto) 4.9 (1.4-5.7) K/uL Lymph # (Auto) 0.4 L (0.6-2.4) K/uL [place] # (Auto) 0.1 (0.0-0.8) K/uL Eos # (Auto) 0.0 (0.0-0.7) K/uL Baso # (Auto) 0.0 (0.0-0.1) K/uL Nucleated RBC % 0.0 /100WBC Nucleated RBCs # 0 K/uL Sodium 141 (136-146) mmol/L Potassium 4.1 (3.5-5.1) mmol/L Chloride 107 (98-110) mmol/L Carbon Dioxide 22 (21-31) mmol/L BUN 22 (6.0-23.0) mg/dL Creatinine 0.9 (0.6-1.5) mg/dL Est Cr Clr Drug Dosing 42.06 mL/min Estimated GFR (MDRD) > 60.0 ml/min Glucose 164 H (60-110) mg/dL Calcium 8.6 L (8.8-10.8) mg/dL Med Orders - Current: Current Medications Acetaminophen (Tylenol) 650 mg PO Q4H PRN PRN Reason: Pain (Mild 1-3)/fever Albuterol/Ipratropium (Duoneb 3.0-0.5 Mg/3 Ml) 3 ml NEB Q4HRRT [facility] Last Admin: 05/05/16 10:11 Dose: 3 ml Alprazolam (Xanax) 0.5 mg PO Q6H PRN PRN Reason: Anxiety Alprazolam (Xanax) 0.5 mg PO TID PRN PRN Reason: Anxiety Last Admin: 05/04/16 19:40 Dose: 0.5 mg Benzonatate (Tessalon Perles) 200 mg PO TID PRN PRN Reason: Cough Last Admin: 05/05/16 08:57 Dose: 200 mg Bisacodyl (Dulcolax) 5 mg PO DAILY PRN PRN Reason: Constipation Donepezil HCl (Aricept) 5 mg PO DAILY [facility] Last Admin: 05/05/16 08:52 Dose: 5 mg Azithromycin 500 mg/ Sodium (Chloride) 250 mls @ 250 mls/hr IV Q24H [facility] Last Admin: 05/04/16 17:57 Dose: 250 mls/hr Ceftriaxone Sodium/Dextrose 1 (gm/ Premix) 50 mls @ 100 mls/hr IV Q24H [facility] Last Admin: 05/04/16 16:22 Dose: 100 mls/hr Lansoprazole (Prevacid Solutab) 15 mg PO DAILY [facility] Last Admin: 05/05/16 08:53 Dose: 15 mg Melatonin (Melatonin) 3 mg PO BEDTIME [facility] Last Admin: 05/04/16 22:04 Dose: 3 mg Methylprednisolone Sodium Succinate (Solu-Medrol) 125 mg IVPUSH Q8HR [facility] Last Admin: 05/05/16 05:31 Dose: 125 mg Multivitamins/Minerals (Thera M Plus) 1 tab PO DAILY [facility] Last Admin: 05/05/16 08:52 Dose: 1 tab Ondansetron HCl (Zofran) 4 mg IVPUSH Q4H PRN PRN Reason: Nausea/Vomiting Last Admin: 05/03/16 22:52 Dose: 4 mg Oseltamivir Phosphate (Tamiflu) 75 mg PO BID [facility] Last Admin: 05/05/16 08:52 Dose: 75 mg Theophylline 300 Mg (Tab.Er) 1 each PO DAILY [facility] Last Admin: 05/05/16 08:55 Dose: 1 each Memantine Hcl 21 Mg (Cap) 1 each PO DAILY [facility] Last Admin: 05/05/16 08:57 Dose: 1 each Fluticasone/Salmeterol (Advair Diskus 250-50) 1 puff INH BID [facility] Last Admin: 05/05/16 10:12 Dose: 1 inhalation Sertraline HCl (Zoloft) 75 mg PO BEDTIME [facility] Last Admin: 05/04/16 22:03 Dose: 75 mg Sodium Chloride (Saline Flush) 10 ml FLUSH ASDIRECTED PRN PRN Reason: Keep Vein Open Last Admin: 05/02/16 12:22 Dose: 10 ml Sodium Chloride (Saline Flush) 2.5 ml FLUSH ASDIRECTED PRN PRN Reason: Keep Vein Open Last Admin: 05/02/16 12:22 Dose: 2.5 ml Temazepam (Restoril) 15 mg PO BEDTIME PRN PRN Reason: Sleep Discontinued Medications Albuterol/Ipratropium (Duoneb 3.0-0.5 Mg/3 Ml) 3 ml NEB ONETIME ONE Stop: 05/02/16 10:27 Last Admin: 05/02/16 10:43 Dose: 3 ml Benzonatate (Tessalon Perles) 200 mg PO ONETIME ONE Stop: 05/02/16 12:37 Last Admin: 05/02/16 12:58 Dose: 200 mg Benzonatate (Tessalon Perles) 100 mg PO TID PRN PRN Reason: Cough Last Admin: 05/02/16 20:21 Dose: 100 mg Calcium Carbonate/Glycine (Tums) 1,000 mg PO ONETIME ONE Stop: 05/04/16 09:46 Last Admin: 05/04/16 11:12 Dose: 1,000 mg Donepezil HCl (Aricept) 10 mg PO BEDTIME [facility] Last Admin: 05/02/16 20:20 Dose: 10 mg Donepezil HCl (Aricept) 10 mg PO DAILY [facility] Last Admin: 05/04/16 11:05 Dose: 10 mg Levofloxacin/Dextrose 500 mg/ (Premix) 100 mls @ 100 mls/hr IV Q24H [facility] Lorazepam (Ativan) 0.5 mg IVPUSH Q4H PRN PRN Reason: Anxiety Memantine (Namenda Xr) 21 mg PO DAILY [facility] Last Admin: 05/03/16 11:02 Dose: Not Given Methylprednisolone Sodium Succinate (Solu-Medrol) 125 mg IVPUSH ONETIME ONE Stop: 05/02/16 12:08 Last Admin: 05/02/16 12:22 Dose: 125 mg Non-Formulary Medication (Theophylline) 300 mg PO DAILY [facility] Ondansetron HCl (Zofran Odt) 4 mg PO Q4H PRN PRN Reason: nausea, able to take PO Oseltamivir Phosphate (Tamiflu) 75 mg PO ONETIME ONE Stop: 05/02/16 12:09 Last Admin: 05/02/16 12:22 Dose: 75 mg Oseltamivir Phosphate (Oseltamivir Phosphate) 30 mg PO Q24H [facility] Oseltamivir Phosphate (Oseltamivir Phosphate) 30 mg PO BID [facility] Last Admin: 05/03/16 10:11 Dose: 30 mg Memantine Hcl 21 Mg (Cap) 1 each PO DAILY [facility] Sertraline HCl (Zoloft) 75 mg PO DAILY [facility] Last Admin: 05/03/16 11:03 Dose: Not Given Theophylline (Theophylline Anhydrous) 200 mg PO DAILY [facility] Last Admin: 05/03/16 10:23 Dose: 200 mg - Exam Quality Assessment: supplemental oxygen, DVT prophylaxis General: alert, oriented, cooperative, no acute distress HEENT: Pupils equal, Pupils reactive, EOMI, Mucous membr. moist/pink Neck: supple Lungs: Normal respiratory effort, Decreased breath sounds, Wheezing Cardiovascular: Regular Rate, Regular Rhythm, Murmurs Abdomen: bowel sounds present, soft, no tenderness, no distension Back Exam: normal inspection Extremities: no edema, normal pulses, no tenderness/swelling, no calf tenderness Peripheral Pulses: 2+: radial (L), radial (R), posterior tibial (L), posterior tibial (R), dorsalis pedis (L), dorsalis pedis (R) Skin: warm, dry, intact Neurological: no new focal deficit Psy/Mental Status: alert, normal affect, normal mood - Problem List & Annotations (1) COPD exacerbation SNOMED Code(s): 049083942, 827211198 Code(s): J44.1 - CHRONIC OBSTRUCTIVE PULMONARY DISEASE W (ACUTE) EXACERBATION Status: Acute Priority: High Current Visit: Yes (2) Influenza B SNOMED Code(s): 60507628 Code(s): J10.1 - FLU DUE TO OTH IDENT INFLUENZA VIRUS W OTH RESP MANIFEST Status: Acute Priority: High Current Visit: Yes - Problem List Review Problem List Initiated/Reviewed/Updated: Yes - Plan Plan:: 75 yo female admitted on 05/02/16 for COPD exacerbation and influenza B. COPD exacerbation: Diffuse wheezing on exam today. Will cont. duonebs and IV solumedrol. Secondary to severe COPD and continued wheezing will keep patient one more day. Cont. Azithromycin and Rocephin. Influenza B: Cont. Tamiflu. Dispo: Tomorrow pending. Patient is on Zanax and prevacid will in house but not on these medications at home. May not need them on discharge.
[2016-05-05] MEDS: cefTRIAXone 1 GM in Premix Bag 1 BAG IV SCH (15:48)
[2016-05-05] MEDS: Azithromycin 500 MG in Sodium Chloride 0.9% 250 ML IV SCH (16:41)
[2016-05-05] MEDS: Albuterol 0.083% 2.5 MG/3 ML Neb Soln NEB PRN (20:23)
[2016-05-05] MEDS: Melatonin 3 MG Tab PO SCH (20:51)
[2016-05-05] MEDS: Sertraline 25 MG Tab PO SCH (20:51)
[2016-05-06] MEDS: Albuterol/Ipratropium 3.0-0.5 MG/3 ML Neb Soln NEB SCH ×6 (03:05→21:20)
[2016-05-06] MEDS: methylPREDNISolone Sodium Succinate 125 MG/2 ML SDV IVPUSH SCH ×2 (05:39→13:46)
[2016-05-06] MEDS: Benzonatate 100 MG Cap PO PRN ×2 (09:25→23:57)
[2016-05-06] MEDS: Oseltamivir 75 MG Cap PO SCH ×2 (09:25→23:57)
[2016-05-06] MEDS: Lansoprazole 30 MG Orally Disintegrating Tab.CR PO SCH (09:26)
[2016-05-06] MEDS: Multivitamins with Iron/Calcium/Folic Acid/Minerals Tab PO SCH (09:26)
[2016-05-06] MEDS: Donepezil 5 MG Tab PO SCH (09:26)
[2016-05-06] MEDS: Fluticasone/Salmeterol 250-50 MCG Inhalation Powder 14/Diskus INH SCH ×2 (09:26→21:31)
[2016-05-06] MEDS: MEMANTINE HCL 21 MG PO SCH (09:28)
[2016-05-06] MEDS: Theophylline 300 MG Tab.ER PO SCH (09:28)
--- NOTE | 2016-05-06 10:27 | PCM.PN ---
- General Info Date of Service: 05/06/16 - Review of Systems Systems Review Comment:: She is still feeling very wheezy she. She had "a rough night "last night - Patient Data Vitals - most recent: Last Vital Signs Temp 97.7 F 05/06/16 05:37 Pulse 81 05/06/16 05:37 Resp 18 05/06/16 05:37 BP 129/60 05/06/16 05:37 Pulse Ox 96 05/06/16 05:37 Weight - most recent: 68.084 kg I&O - last 24 hours: Intake & Output 05/05/16 05/06/16 05/06/16 22:59 06:59 14:59 Intake Total 820 700 Output Total 500 Balance 320 700 Med Orders - Current: Current Medications Acetaminophen (Tylenol) 650 mg PO Q4H PRN PRN Reason: Pain (Mild 1-3)/fever Albuterol (Proventil Neb Soln) 2.5 mg NEB Q2H PRN PRN Reason: Shortness of Breath Last Admin: 05/05/16 20:23 Dose: 2.5 mg Albuterol/Ipratropium (Duoneb 3.0-0.5 Mg/3 Ml) 3 ml NEB Q4HRRT [facility] Last Admin: 05/06/16 09:25 Dose: 3 ml Alprazolam (Xanax) 0.5 mg PO Q6H PRN PRN Reason: Anxiety Alprazolam (Xanax) 0.5 mg PO TID PRN PRN Reason: Anxiety Last Admin: 05/04/16 19:40 Dose: 0.5 mg Benzonatate (Tessalon Perles) 200 mg PO TID PRN PRN Reason: Cough Last Admin: 05/06/16 09:25 Dose: 200 mg Bisacodyl (Dulcolax) 5 mg PO DAILY PRN PRN Reason: Constipation Donepezil HCl (Aricept) 5 mg PO DAILY [facility] Last Admin: 05/06/16 09:26 Dose: 5 mg Azithromycin 500 mg/ Sodium (Chloride) 250 mls @ 250 mls/hr IV Q24H [facility] Last Admin: 05/05/16 16:41 Dose: 250 mls/hr Piperacillin Sod/Tazobactam (Sod 3.375 gm/ Sodium Chloride) 50 mls @ 100 mls/ hr IV Q6H [facility] Lansoprazole (Prevacid Solutab) 15 mg PO DAILY [facility] Last Admin: 05/06/16 09:26 Dose: 15 mg Melatonin (Melatonin) 3 mg PO BEDTIME [facility] Last Admin: 05/05/16 20:51 Dose: 3 mg Methylprednisolone Sodium Succinate (Solu-Medrol) 125 mg IVPUSH Q8HR [facility] Last Admin: 05/06/16 05:39 Dose: 125 mg Multivitamins/Minerals (Thera M Plus) 1 tab PO DAILY [facility] Last Admin: 05/06/16 09:26 Dose: 1 tab Ondansetron HCl (Zofran) 4 mg IVPUSH Q4H PRN PRN Reason: Nausea/Vomiting Last Admin: 05/03/16 22:52 Dose: 4 mg Oseltamivir Phosphate (Tamiflu) 75 mg PO BID [facility] Last Admin: 05/06/16 09:25 Dose: 75 mg Theophylline 300 Mg (Tab.Er) 1 each PO DAILY [facility] Last Admin: 05/06/16 09:28 Dose: 1 each Memantine Hcl 21 Mg (Cap) 1 each PO DAILY [facility] Last Admin: 05/06/16 09:28 Dose: 1 each Fluticasone/Salmeterol (Advair Diskus 250-50) 1 puff INH BID [facility] Last Admin: 05/06/16 09:26 Dose: 1 inhalation Sertraline HCl (Zoloft) 75 mg PO BEDTIME [facility] Last Admin: 05/05/16 20:51 Dose: 75 mg Sodium Chloride (Saline Flush) 10 ml FLUSH ASDIRECTED PRN PRN Reason: Keep Vein Open Last Admin: 05/02/16 12:22 Dose: 10 ml Sodium Chloride (Saline Flush) 2.5 ml FLUSH ASDIRECTED PRN PRN Reason: Keep Vein Open Last Admin: 05/02/16 12:22 Dose: 2.5 ml Temazepam (Restoril) 15 mg PO BEDTIME PRN PRN Reason: Sleep Vancomycin HCl (Pharmacy To Dose - Vancomycin) 1 dose .XX ASDIRECTED [facility] Discontinued Medications Albuterol/Ipratropium (Duoneb 3.0-0.5 Mg/3 Ml) 3 ml NEB ONETIME ONE Stop: 05/02/16 10:27 Last Admin: 05/02/16 10:43 Dose: 3 ml Benzonatate (Tessalon Perles) 200 mg PO ONETIME ONE Stop: 05/02/16 12:37 Last Admin: 05/02/16 12:58 Dose: 200 mg Benzonatate (Tessalon Perles) 100 mg PO TID PRN PRN Reason: Cough Last Admin: 05/02/16 20:21 Dose: 100 mg Calcium Carbonate/Glycine (Tums) 1,000 mg PO ONETIME ONE Stop: 05/04/16 09:46 Last Admin: 05/04/16 11:12 Dose: 1,000 mg Donepezil HCl (Aricept) 10 mg PO BEDTIME [facility] Last Admin: 05/02/16 20:20 Dose: 10 mg Donepezil HCl (Aricept) 10 mg PO DAILY [facility] Last Admin: 05/04/16 11:05 Dose: 10 mg Levofloxacin/Dextrose 500 mg/ (Premix) 100 mls @ 100 mls/hr IV Q24H [facility] Ceftriaxone Sodium/Dextrose 1 (gm/ Premix) 50 mls @ 100 mls/hr IV Q24H [facility] Last Admin: 05/05/16 15:48 Dose: 100 mls/hr Lorazepam (Ativan) 0.5 mg IVPUSH Q4H PRN PRN Reason: Anxiety Memantine (Namenda Xr) 21 mg PO DAILY [facility] Last Admin: 05/03/16 11:02 Dose: Not Given Methylprednisolone Sodium Succinate (Solu-Medrol) 125 mg IVPUSH ONETIME ONE Stop: 05/02/16 12:08 Last Admin: 05/02/16 12:22 Dose: 125 mg Non-Formulary Medication (Theophylline) 300 mg PO DAILY [facility] Ondansetron HCl (Zofran Odt) 4 mg PO Q4H PRN PRN Reason: nausea, able to take PO Oseltamivir Phosphate (Tamiflu) 75 mg PO ONETIME ONE Stop: 05/02/16 12:09 Last Admin: 05/02/16 12:22 Dose: 75 mg Oseltamivir Phosphate (Oseltamivir Phosphate) 30 mg PO Q24H [facility] Oseltamivir Phosphate (Oseltamivir Phosphate) 30 mg PO BID [facility] Last Admin: 05/03/16 10:11 Dose: 30 mg Memantine Hcl 21 Mg (Cap) 1 each PO DAILY [facility] Sertraline HCl (Zoloft) 75 mg PO DAILY [facility] Last Admin: 05/03/16 11:03 Dose: Not Given Theophylline (Theophylline Anhydrous) 200 mg PO DAILY [facility] Last Admin: 05/03/16 10:23 Dose: 200 mg - Exam General: alert, oriented, cooperative (Lung exam is remarkable). No: lethargic Lungs: Other (Lung exam is remarkable for stone or some breathing auscultation reveals diffuse rhonchi and wheezes throughout all lung barrientos. She has marked delay in for a phase of the ventilation cycle.) Abdomen: no tenderness (Mental status normal) - Problem List & Annotations (1) COPD exacerbation SNOMED Code(s): 381025928, 478054414 Code(s): J44.1 - CHRONIC OBSTRUCTIVE PULMONARY DISEASE W (ACUTE) EXACERBATION Status: Acute Priority: High Current Visit: Yes (2) Influenza B SNOMED Code(s): 66691162 Code(s): J10.1 - FLU DUE TO OTH IDENT INFLUENZA VIRUS W OTH RESP MANIFEST Status: Acute Priority: High Current Visit: Yes (3) Dementia SNOMED Code(s): 59579788 Code(s): F03.90 - UNSPECIFIED DEMENTIA WITHOUT BEHAVIORAL DISTURBANCE Status: Acute Current Visit: Yes - Problem List Review Problem List Initiated/Reviewed/Updated: Yes - My Orders Last 24 Hours: My Active Orders 05/05/16 20:10 RT Aerosol Therapy [RC] ASDIRECTED Albuterol [Proventil Neb Soln] 2.5 mg NEB Q2H PRN 05/06/16 10:30 Piperacillin/Tazobactam [Piperacil-Tazobact] 3.375 gm Sodium Chloride 0.9% [ Normal Saline] 50 ml IV Q6H Vancomycin Pharmacy to Dose [Pharmacy to Dose - Vancomycin] 1 dose .XX ASDIRECTED - Plan Plan:: 75 yo female admitted on 05/02/16 for COPD exacerbation and influenza B. COPD exacerbation: Diffuse wheezing on exam today. Will cont. duonebs and IV solumedrol. Secondary to severe COPD and continued wheezing will keep patient one more day. Cont. Azithromycin and Rocephin. Influenza B: Cont. Tamiflu. Dispo: Tomorrow pending. Patient is on Zanax and prevacid will in house but not on these medications at home. May not need them on discharge. 05/06/2016: She has a delayed clinical response. She does have home oxygen we'll broaden antibiotic coverage anticipate possible discharge for 8 hours. She is continued on intravenous Solu-Medrol
[2016-05-06] MEDS: Piperacillin/Tazobactam 3.375 GM in Sodium Chloride 0.9% 50 ML IV SCH ×3 (10:35→23:46)
[2016-05-06] MEDS: Albuterol 0.083% 2.5 MG/3 ML Neb Soln NEB PRN ×2 (11:35→16:12)
[2016-05-06] MEDS ORDERED: diphenhydrAMINE 50 MG Cap PO PRN (14:01)
[2016-05-06] MEDS: Azithromycin 500 MG in Sodium Chloride 0.9% 250 ML IV SCH (16:37)
[2016-05-06] MEDS: Sertraline 25 MG Tab PO SCH (23:56)
[2016-05-06] MEDS: Melatonin 3 MG Tab PO SCH (23:57)
[2016-05-07] MEDS: methylPREDNISolone Sodium Succinate 125 MG/2 ML SDV IVPUSH SCH ×4 (00:03→22:43)
[2016-05-07] MEDS: Albuterol 0.083% 2.5 MG/3 ML Neb Soln NEB PRN ×2 (00:44→15:34)
[2016-05-07] MEDS: ALPRAZolam 0.5 MG Tab PO PRN ×2 (01:13→19:30)
[2016-05-07] MEDS ORDERED: Aluminum Hydroxide/Magnesium Hydroxide/Simethicone Susp 30 ML Cup PO PRN (01:56)
[2016-05-07] MEDS: Albuterol/Ipratropium 3.0-0.5 MG/3 ML Neb Soln NEB SCH ×6 (02:38→21:16)
[2016-05-07] MEDS: Piperacillin/Tazobactam 3.375 GM in Sodium Chloride 0.9% 50 ML IV SCH ×4 (05:23→23:21)
[2016-05-07 05:29] LABS: CHLORIDE,CL 110 mmol/L (98-110); SODIUM,NA 143 mmol/L (136-146)
[2016-05-07] MEDS ORDERED: Calcium Carbonate 500 MG Tab.Chew PO ONE (08:05)
[2016-05-07] MEDS: Oseltamivir 75 MG Cap PO SCH ×2 (09:24→22:05)
[2016-05-07] MEDS: Donepezil 5 MG Tab PO SCH (09:24)
[2016-05-07] MEDS: Lansoprazole 30 MG Orally Disintegrating Tab.CR PO SCH ×3 (09:24→22:05)
[2016-05-07] MEDS: Theophylline 300 MG Tab.ER PO SCH (09:25)
[2016-05-07] MEDS: MEMANTINE HCL 21 MG PO SCH (09:25)
[2016-05-07] MEDS: Multivitamins with Iron/Calcium/Folic Acid/Minerals Tab PO SCH (09:31)
[2016-05-07] MEDS: Fluticasone/Salmeterol 250-50 MCG Inhalation Powder 14/Diskus INH SCH ×2 (10:28→21:17)
--- NOTE | 2016-05-07 11:53 | CR ---
EXAMINATION: Portable chest radiograph. HISTORY: Shortness of breath. Comparison: 05/02/2016, 10/22/2015. FINDINGS: The trachea is midline. The cardiomediastinal silhouette is within normal limits. No pulmonary infil trates, effusions or pneumothorax. There is a chronic interstitial prominence. Osseous structures appear unremarkable. IMPRESSION: No acute cardiopulmonary process.
--- NOTE | 2016-05-07 13:15 | PCM.PN ---
- General Info Date of Service: 05/07/16 Admission Dx/Problem (Free Text): Admission Diagnosis/Problem Admission Diagnosis/Problem COPD, Moderate chronic obstructive pulmonary disease Subjective Update: Did not sleep well last night. Had an episode where she thought she could not breath. Was given ativan and then felt better. Believes shes been having some anxiety over current illness and her declining respiratory status. Eating and eliminating. No pain. Breathing has overall improved as per patient. Functional Status: Reports: pain controlled, tolerating diet, ambulating, incentive spirometry - Review of Systems General: Reports: Fatigue, Malaise. Denies: Fever, Weakness, Chills HEENT: Denies: headaches, sore throat Pulmonary: Reports: cough, wheezing. Denies: shortness of breath, sputum, hemoptysis Cardiovascular: Denies: Chest Pain, Palpitations, Edema Gastrointestinal: Denies: Abdominal pain, Nausea, Vomiting Genitourinary: Denies: dysuria, hematuria Musculoskeletal: Denies: neck pain, leg pain Skin: Denies: cyanosis Neurological: Reports: Confusion Psychiatric: Reports: confusion - Patient Data Vitals - most recent: Last Vital Signs Temp 36.6 C 05/07/16 12:00 Pulse 60 05/07/16 12:00 Resp 16 05/07/16 12:00 BP 130/60 05/07/16 12:00 Pulse Ox 90 L 05/07/16 12:00 Weight - most recent: 68.084 kg I&O - last 24 hours: Intake & Output 05/06/16 05/07/16 05/07/16 22:59 06:59 14:59 Intake Total 1300 1100 300 Output Total 850 550 Balance 450 550 300 Lab Results last 24 hrs: Laboratory Results - last 24 hr 05/07/16 05/07/16 Range/Units 04:57 04:57 WBC 7.37 (4.0-11.0) K/uL RBC 4.30 (4.30-5.90) M/uL Hgb 12.3 (12.0-16.0) g/dL Hct 37.7 (36.0-46.0) % MCV 87.7 (80.0-98.0) fL MCH 28.6 (27.0-32.0) pg MCHC 32.6 (31.0-37.0) g/dL RDW Std Deviation 46.3 (28.0-62.0) fl RDW Coeff of Nikhil 15 (11.0-15.0) % Plt Count 203 (150-400) K/uL MPV 9.00 (7.40-12.00) fL Add Manual Diff YES Neutrophils % (Manual) 86 H (48.0-80.0) % Band Neutrophils % 6 % Lymphocytes % (Manual) 5 L (16.0-40.0) % Monocytes % (Manual) 3 (0.0-15.0) % Nucleated RBC % 0.0 /100WBC Absolute Seg Neuts 6.3 Band Neutrophils # 0.4 Lymphocytes # (Manual) 0.4 Monocytes # (Manual) 0.2 Nucleated RBCs # 0 K/uL Sodium 143 (136-146) mmol/L Potassium 4.1 (3.5-5.1) mmol/L Chloride 110 (98-110) mmol/L Carbon Dioxide 23 (21-31) mmol/L BUN 21 (6.0-23.0) mg/dL Creatinine 0.9 (0.6-1.5) mg/dL Est Cr Clr Drug Dosing 42.06 mL/min Estimated GFR (MDRD) > 60.0 ml/min Glucose 159 H (60-110) mg/dL Calcium 7.9 L (8.8-10.8) mg/dL Med Orders - Current: Current Medications Acetaminophen (Tylenol) 650 mg PO Q4H PRN PRN Reason: Pain (Mild 1-3)/fever Last Admin: 05/06/16 11:24 Dose: 650 mg Al Hydroxide/Mg Hydroxide (Mag-Al Plus) 15 ml PO Q4H PRN PRN Reason: Heartburn Albuterol (Proventil Neb Soln) 2.5 mg NEB Q2H PRN PRN Reason: Shortness of Breath Last Admin: 05/07/16 00:44 Dose: 2.5 mg Albuterol/Ipratropium (Duoneb 3.0-0.5 Mg/3 Ml) 3 ml NEB Q4HRRT [facility] Last Admin: 05/07/16 10:28 Dose: 3 ml Alprazolam (Xanax) 0.5 mg PO Q6H PRN PRN Reason: Anxiety Last Admin: 05/07/16 01:13 Dose: 0.25 mg Alprazolam (Xanax) 0.5 mg PO TID PRN PRN Reason: Anxiety Last Admin: 05/04/16 19:40 Dose: 0.5 mg Benzonatate (Tessalon Perles) 200 mg PO TID PRN PRN Reason: Cough Last Admin: 05/06/16 23:57 Dose: 200 mg Bisacodyl (Dulcolax) 5 mg PO DAILY PRN PRN Reason: Constipation Diphenhydramine HCl (Benadryl) 50 mg PO TID PRN PRN Reason: itchiness Last Admin: 05/06/16 14:22 Dose: 50 mg Donepezil HCl (Aricept) 5 mg PO DAILY [facility] Last Admin: 05/07/16 09:24 Dose: 5 mg Azithromycin 500 mg/ Sodium (Chloride) 250 mls @ 250 mls/hr IV Q24H [facility] Last Admin: 05/06/16 16:37 Dose: 250 mls/hr Piperacillin Sod/Tazobactam (Sod 3.375 gm/ Sodium Chloride) 50 mls @ 100 mls/ hr IV Q6H [facility] Last Admin: 05/07/16 10:05 Dose: 100 mls/hr Vancomycin HCl 1 gm/ Sodium (Chloride) 250 mls @ 166.667 mls/hr IV Q12H [facility] Last Admin: 05/07/16 11:10 Dose: 166 mls/hr Lansoprazole (Prevacid Solutab) 15 mg PO BID [facility] Last Admin: 05/07/16 09:24 Dose: 15 mg Melatonin (Melatonin) 3 mg PO BEDTIME [facility] Last Admin: 05/06/16 23:57 Dose: 3 mg Methylprednisolone Sodium Succinate (Solu-Medrol) 125 mg IVPUSH Q8HR [facility] Last Admin: 05/07/16 06:52 Dose: 125 mg Multivitamins/Minerals (Thera M Plus) 1 tab PO DAILY [facility] Last Admin: 05/07/16 09:31 Dose: 1 tab Ondansetron HCl (Zofran) 4 mg IVPUSH Q4H PRN PRN Reason: Nausea/Vomiting Last Admin: 05/03/16 22:52 Dose: 4 mg Oseltamivir Phosphate (Tamiflu) 75 mg PO BID [facility] Last Admin: 05/07/16 09:24 Dose: 75 mg Theophylline 300 Mg (Tab.Er) 1 each PO DAILY [facility] Last Admin: 05/07/16 09:25 Dose: 1 each Memantine Hcl 21 Mg (Cap) 1 each PO DAILY [facility] Last Admin: 05/07/16 09:25 Dose: 1 each Fluticasone/Salmeterol (Advair Diskus 250-50) 1 puff INH BID [facility] Last Admin: 05/07/16 10:28 Dose: 1 inhalation Sertraline HCl (Zoloft) 75 mg PO BEDTIME [facility] Last Admin: 05/06/16 23:56 Dose: 75 mg Sodium Chloride (Saline Flush) 10 ml FLUSH ASDIRECTED PRN PRN Reason: Keep Vein Open Last Admin: 05/02/16 12:22 Dose: 10 ml Sodium Chloride (Saline Flush) 2.5 ml FLUSH ASDIRECTED PRN PRN Reason: Keep Vein Open Last Admin: 05/02/16 12:22 Dose: 2.5 ml Temazepam (Restoril) 15 mg PO BEDTIME PRN PRN Reason: Sleep Vancomycin HCl (Pharmacy To Dose - Vancomycin) 1 dose .XX ASDIRECTED [facility] Discontinued Medications Albuterol/Ipratropium (Duoneb 3.0-0.5 Mg/3 Ml) 3 ml NEB ONETIME ONE Stop: 05/02/16 10:27 Last Admin: 05/02/16 10:43 Dose: 3 ml Benzonatate (Tessalon Perles) 200 mg PO ONETIME ONE Stop: 05/02/16 12:37 Last Admin: 05/02/16 12:58 Dose: 200 mg Benzonatate (Tessalon Perles) 100 mg PO TID PRN PRN Reason: Cough Last Admin: 05/02/16 20:21 Dose: 100 mg Calcium Carbonate/Glycine (Tums) 1,000 mg PO ONETIME ONE Stop: 05/04/16 09:46 Last Admin: 05/04/16 11:12 Dose: 1,000 mg Calcium Carbonate/Glycine (Tums) 1,000 mg PO ONETIME ONE Stop: 05/07/16 08:06 Last Admin: 05/07/16 09:23 Dose: 1,000 mg Donepezil HCl (Aricept) 10 mg PO BEDTIME [facility] Last Admin: 05/02/16 20:20 Dose: 10 mg Donepezil HCl (Aricept) 10 mg PO DAILY [facility] Last Admin: 05/04/16 11:05 Dose: 10 mg Levofloxacin/Dextrose 500 mg/ (Premix) 100 mls @ 100 mls/hr IV Q24H [facility] Ceftriaxone Sodium/Dextrose 1 (gm/ Premix) 50 mls @ 100 mls/hr IV Q24H [facility] Last Admin: 05/05/16 15:48 Dose: 100 mls/hr Lansoprazole (Prevacid Solutab) 15 mg PO DAILY [facility] Last Admin: 05/06/16 09:26 Dose: 15 mg Lorazepam (Ativan) 0.5 mg IVPUSH Q4H PRN PRN Reason: Anxiety Memantine (Namenda Xr) 21 mg PO DAILY [facility] Last Admin: 05/03/16 11:02 Dose: Not Given Methylprednisolone Sodium Succinate (Solu-Medrol) 125 mg IVPUSH ONETIME ONE Stop: 05/02/16 12:08 Last Admin: 05/02/16 12:22 Dose: 125 mg Non-Formulary Medication (Theophylline) 300 mg PO DAILY [facility] Ondansetron HCl (Zofran Odt) 4 mg PO Q4H PRN PRN Reason: nausea, able to take PO Oseltamivir Phosphate (Tamiflu) 75 mg PO ONETIME ONE Stop: 05/02/16 12:09 Last Admin: 05/02/16 12:22 Dose: 75 mg Oseltamivir Phosphate (Oseltamivir Phosphate) 30 mg PO Q24H [facility] Oseltamivir Phosphate (Oseltamivir Phosphate) 30 mg PO BID [facility] Last Admin: 05/03/16 10:11 Dose: 30 mg Memantine Hcl 21 Mg (Cap) 1 each PO DAILY [facility] Sertraline HCl (Zoloft) 75 mg PO DAILY [facility] Last Admin: 05/03/16 11:03 Dose: Not Given Theophylline (Theophylline Anhydrous) 200 mg PO DAILY [facility] Last Admin: 05/03/16 10:23 Dose: 200 mg - Exam Quality Assessment: supplemental oxygen, DVT prophylaxis General: alert, oriented, cooperative, no acute distress HEENT: Pupils equal, Pupils reactive, EOMI, Mucous membr. moist/pink Neck: supple, trachea midline Lungs: Clear to auscultation, Normal respiratory effort, Crackles, Wheezing Cardiovascular: Regular Rate, Regular Rhythm Abdomen: bowel sounds present, soft, no tenderness, no distension Back Exam: normal inspection, full range of motion Extremities: no edema Peripheral Pulses: 2+: radial (L), radial (R), posterior tibial (L), posterior tibial (R), dorsalis pedis (L), dorsalis pedis (R) Skin: warm, dry, intact Neurological: no new focal deficit Psy/Mental Status: alert, normal affect, normal mood - Problem List & Annotations (1) COPD exacerbation SNOMED Code(s): 628425231, 499525332 Code(s): J44.1 - CHRONIC OBSTRUCTIVE PULMONARY DISEASE W (ACUTE) EXACERBATION Status: Acute Priority: High Current Visit: Yes (2) Influenza B SNOMED Code(s): 69608284 Code(s): J10.1 - FLU DUE TO OTH IDENT INFLUENZA VIRUS W OTH RESP MANIFEST Status: Acute Priority: High Current Visit: Yes - Problem List Review Problem List Initiated/Reviewed/Updated: Yes - Plan Plan:: 75 yo female admitted on 05/02/16 for COPD exacerbation and influenza B. COPD exacerbation: Wheezing on exam today but better than previous. Cont. duonebs and IV solumedrol. Secondary to severe COPD and continued wheezing will keep patient one more day. CXR repeated today showed no acute cardiopulmonary disease. Influenza B: Day 5 of Tamiflu today will stop. Dispo: Tomorrow am. Patient is on Zanax and prevacid will in house but not on these medications at home. May not need them on discharge.
[2016-05-07] MEDS: Azithromycin 500 MG in Sodium Chloride 0.9% 250 ML IV SCH (16:21)
[2016-05-07] MEDS: Benzonatate 100 MG Cap PO PRN (19:31)
[2016-05-07] MEDS: Sertraline 25 MG Tab PO SCH ×2 (22:03→22:05)
[2016-05-07] MEDS: Melatonin 3 MG Tab PO SCH (22:05)
[2016-05-07] MEDS: Ondansetron 4 MG/2 ML SDV IVPUSH PRN (22:43)
[2016-05-08] MEDS: Albuterol/Ipratropium 3.0-0.5 MG/3 ML Neb Soln NEB SCH ×3 (02:55→09:41)
[2016-05-08] MEDS: Piperacillin/Tazobactam 3.375 GM in Sodium Chloride 0.9% 50 ML IV SCH ×2 (03:57→09:29)
[2016-05-08] MEDS: methylPREDNISolone Sodium Succinate 125 MG/2 ML SDV IVPUSH SCH (06:51)
[2016-05-08 06:59] LABS: CHLORIDE,CL 111 mmol/L (98-110); SODIUM,NA 142 mmol/L (136-146)
[2016-05-08] MEDS: Fluticasone/Salmeterol 250-50 MCG Inhalation Powder 14/Diskus INH SCH (09:00)
[2016-05-08] MEDS: Lansoprazole 30 MG Orally Disintegrating Tab.CR PO SCH (09:28)
[2016-05-08] MEDS: Donepezil 5 MG Tab PO SCH (09:28)
[2016-05-08] MEDS: Multivitamins with Iron/Calcium/Folic Acid/Minerals Tab PO SCH (09:28)
[2016-05-08] MEDS: Theophylline 300 MG Tab.ER PO SCH (09:29)
[2016-05-08] MEDS: MEMANTINE HCL 21 MG PO SCH (09:29)
[2016-05-08] MEDS: Oseltamivir 75 MG Cap PO SCH (11:42)
[2016-05-08 12:46] VITALS: BP 135/72
--- NOTE | 2016-05-08 15:51 | PCM.DCSUM1 ---
Addendum entered and electronically signed by Ravi Man MD 05/08/16 16:28 : Discharge Summary - Hospital Course Brief History: Patient intially presented to ED with a history of fever starting on 05/01/16 max tem 102. She had a cough for several days which she felt was due to congestion. Patient did have a hisotry of chronic bronchitis. She initially reported that she did not feel more short of breath. Patient did state that she has oxygen at home and uses it when necessary. She had nebulizer treatments and also takes theophylline. Patient denied any cardiac history and presented with no chest pain, sore throat, runny nose, nausea, vomiting, or abdominal pain. She did have 2 loose stools last evening but none on day of admission. She had no urinary complaints no rashes and did not feel dizzy or lightheaded. The patient report that she had recieved influenza vaccination in November. - Discharge Data Discharge Date: 05/08/16 Discharge Disposition: Home, Self-Care 01 Condition: Good - Discharge Diagnosis/Problem(s) (1) COPD exacerbation SNOMED Code(s): 713847779, 942774648 ICD Code: J44.1 - CHRONIC OBSTRUCTIVE PULMONARY DISEASE W (ACUTE) EXACERBATION Status: Acute Priority: High (2) Influenza B SNOMED Code(s): 00283450 ICD Code: J10.1 - FLU DUE TO OTH IDENT INFLUENZA VIRUS W OTH RESP MANIFEST Status: Acute Priority: High - Patient Summary/Data Consults: Consultations 05/05/16 11:15 PT Evaluation and Treatment [CONS] Routine - Patient Instructions Diet: Usual Diet as Tolerated Activity: Rest and Relax Today Driving: Do Not Drive Showering/Bathing: May Shower Notify Provider of: Fever, Increased Pain, Nausea and/or Vomiting Other/Special Instructions: Follow-up with Dr. Beckford as scheduled. Take medications as prescribed. Return to ED if having increased respiratory difficulty or fevers. - Discharge Plan Prescriptions/Med Rec: Ondansetron HCl [Zofran] 4 mg PO Q4HR PRN #18 tablet PRN Reason: Nausea Prednisone [IJD: predniSONE] 20 mg PO WITHBREAKFAST #30 tab Home Medications: Home Meds Albuterol [Ventolin HFA] 2 puff INH Q6H PRN 07/17/14 [History] Albuterol/Ipratropium [DuoNeb 3.0-0.5 MG/3 ML] 3 ml NEB Q6HRRT PRN 07/17/14 [ History] Ca Carbonate/Vitamin D3/Vit K [Citracal Soft Chew] 1 each PO BEDTIME 07/17/14 [ History] Fluticasone/Salmeterol [Advair 250-50] 1 puff INH BID 07/17/14 [History] Memantine HCl [Namenda Xr] 21 mg PO DAILY 07/17/14 [History] Montelukast [Singulair] 10 mg PO BEDTIME 07/17/14 [History] Multivit-Min/FA/Lycopene/Lut [Centrum Silver Tablet] 1 each PO DAILY 07/17/14 [ History] Benzonatate [Tessalon Perles] 100 mg PO TID PRN 05/02/16 [History] Fexofenadine [Joyce] 180 mg PO DAILY 05/02/16 [History] Fluticasone Propionate 1 spray NS DAILY PRN 05/02/16 [History] Melatonin 3 mg PO BEDTIME 05/02/16 [History] Nicotine [Nicotrol NS] 1 spray NS Q6H PRN 05/02/16 [History] Theophylline [Theophylline Anhydrous] 300 mg PO DAILY 05/03/16 [History] Memantine HCl [Namenda] 5 mg PO BEDTIME 05/04/16 [History] Sertraline [Zoloft] 75 mg PO BEDTIME 05/04/16 [History] Sodium Chloride 0.9% 3 ml IH ASDIRECTED PRN 05/04/16 [History] Ondansetron HCl [Zofran] 4 mg PO Q4HR PRN #18 tablet 05/08/16 [Rx] Prednisone [IJD: predniSONE] 20 mg PO WITHBREAKFAST #30 tab 05/08/16 [Rx] Patient Handouts: Chronic Obstructive Pulmonary Disease Exacerbation, Easy-to- Read, Ondansetron tablets, Influenza, Adult, Prednisolone tablets Referrals: Isaias Watson DO [Primary Care Provider] - 05/18/16 2:30 pm - General Info Date of Service: 05/08/16 Admission Dx/Problem (Free Text: Admission Diagnosis/Problem Admission Diagnosis/Problem COPD, Moderate chronic obstructive pulmonary disease Subjective Update: Slept better last evening. Still mildly short of breath but much improved. Feeling overall much better. Eating and eliminating without difficulty. Functional Status: Reports: pain controlled, tolerating diet, incentive spirometry - Review of Systems General: Reports: Fatigue. Denies: Fever, Weakness, Malaise, Chills HEENT: Denies: sinus congestion, visual changes Pulmonary: Reports: cough, wheezing. Denies: shortness of breath, pleuritic chest pain, sputum Cardiovascular: Denies: Chest Pain, Palpitations, Edema Gastrointestinal: Denies: Abdominal pain, Nausea, Vomiting Genitourinary: Denies: dysuria, hematuria Musculoskeletal: Denies: leg pain Skin: Denies: cyanosis Neurological: Denies: Confusion, Dizziness Psychiatric: Denies: confusion - Patient Data Vitals - Most Recent: Last Vital Signs Temp 36.2 C 05/08/16 07:00 Pulse 89 05/08/16 11:00 Resp 18 05/08/16 11:00 BP 135/72 05/08/16 11:00 Pulse Ox 96 05/08/16 11:00 Weight - Most Recent: 68.084 kg I&O - Last 24 hours: Intake & Output 05/08/16 05/08/16 05/08/16 06:59 14:59 22:59 Intake Total 850 500 Output Total 400 Balance 850 100 Lab Results - Last 24 hrs: Laboratory Results - last 24 hr 05/07/16 05/08/16 05/08/16 Range/Units 21:59 06:05 06:05 WBC 9.83 (4.0-11.0) K/uL RBC 4.10 L (4.30-5.90) M/uL Hgb 11.8 L (12.0-16.0) g/dL Hct 36.2 (36.0-46.0) % MCV 88.3 (80.0-98.0) fL MCH 28.8 (27.0-32.0) pg MCHC 32.6 (31.0-37.0) g/dL RDW Std Deviation 47.3 (28.0-62.0) fl RDW Coeff of Nikhil 15 (11.0-15.0) % Plt Count 222 (150-400) K/uL MPV 9.20 (7.40-12.00) fL Add Manual Diff YES Neutrophils % (Manual) 84 H (48.0-80.0) % Band Neutrophils % 3 % Lymphocytes % (Manual) 5 L (16.0-40.0) % Monocytes % (Manual) 8 (0.0-15.0) % Nucleated RBC % 0.0 /100WBC Absolute Seg Neuts 8.3 Band Neutrophils # 0.3 Lymphocytes # (Manual) 0.5 Monocytes # (Manual) 0.8 Nucleated RBCs # 0 K/uL Sodium 142 (136-146) mmol/L Potassium 4.3 (3.5-5.1) mmol/L Chloride 111 H (98-110) mmol/L Carbon Dioxide 21 (21-31) mmol/L BUN 24 H (6.0-23.0) mg/dL Creatinine 0.9 (0.6-1.5) mg/dL Est Cr Clr Drug Dosing 42.06 mL/min Estimated GFR (MDRD) > 60.0 ml/min Glucose 160 H (60-110) mg/dL Calcium 7.9 L (8.8-10.8) mg/dL Total Bilirubin 0.3 (0.1-1.5) mg/dL AST 33 (5-40) IU/L ALT 87 H (8-54) IU/L Alkaline Phosphatase 61 (40-150) Total Protein 5.3 L (6.0-8.0) g/dL Albumin 2.9 L (3.4-4.8) g/dL Globulin 2.4 (2.0-3.5) g/dL Albumin/Globulin Ratio 1.2 L (1.3-2.8) Vancomycin Trough 13.2 (5-15) ug/mL Med Orders - Current: Current Medications Discontinued Medications Acetaminophen (Tylenol) 650 mg PO Q4H PRN PRN Reason: Pain (Mild 1-3)/fever Last Admin: 05/06/16 11:24 Dose: 650 mg Al Hydroxide/Mg Hydroxide (Mag-Al Plus) 15 ml PO Q4H PRN PRN Reason: Heartburn Albuterol (Proventil Neb Soln) 2.5 mg NEB Q2H PRN PRN Reason: Shortness of Breath Last Admin: 05/07/16 15:34 Dose: 2.5 mg Albuterol/Ipratropium (Duoneb 3.0-0.5 Mg/3 Ml) 3 ml NEB ONETIME ONE Stop: 05/02/16 10:27 Last Admin: 05/02/16 10:43 Dose: 3 ml Albuterol/Ipratropium (Duoneb 3.0-0.5 Mg/3 Ml) 3 ml NEB Q4HRRT [facility] Last Admin: 05/08/16 09:41 Dose: 3 ml Alprazolam (Xanax) 0.5 mg PO Q6H PRN PRN Reason: Anxiety Last Admin: 05/07/16 19:30 Dose: 0.25 mg Alprazolam (Xanax) 0.5 mg PO TID PRN PRN Reason: Anxiety Last Admin: 05/04/16 19:40 Dose: 0.5 mg Benzonatate (Tessalon Perles) 200 mg PO ONETIME ONE Stop: 05/02/16 12:37 Last Admin: 05/02/16 12:58 Dose: 200 mg Benzonatate (Tessalon Perles) 100 mg PO TID PRN PRN Reason: Cough Last Admin: 05/02/16 20:21 Dose: 100 mg Benzonatate (Tessalon Perles) 200 mg PO TID PRN PRN Reason: Cough Last Admin: 05/07/16 19:31 Dose: 200 mg Bisacodyl (Dulcolax) 5 mg PO DAILY PRN PRN Reason: Constipation Calcium Carbonate/Glycine (Tums) 1,000 mg PO ONETIME ONE Stop: 05/04/16 09:46 Last Admin: 05/04/16 11:12 Dose: 1,000 mg Calcium Carbonate/Glycine (Tums) 1,000 mg PO ONETIME ONE Stop: 05/07/16 08:06 Last Admin: 05/07/16 09:23 Dose: 1,000 mg Diphenhydramine HCl (Benadryl) 50 mg PO TID PRN PRN Reason: itchiness Last Admin: 05/06/16 14:22 Dose: 50 mg Donepezil HCl (Aricept) 10 mg PO BEDTIME [facility] Last Admin: 05/02/16 20:20 Dose: 10 mg Donepezil HCl (Aricept) 10 mg PO DAILY [facility] Last Admin: 05/04/16 11:05 Dose: 10 mg Donepezil HCl (Aricept) 5 mg PO DAILY [facility] Last Admin: 05/08/16 09:28 Dose: 5 mg Levofloxacin/Dextrose 500 mg/ (Premix) 100 mls @ 100 mls/hr IV Q24H [facility] Azithromycin 500 mg/ Sodium (Chloride) 250 mls @ 250 mls/hr IV Q24H [facility] Last Admin: 05/07/16 16:21 Dose: 250 mls/hr Ceftriaxone Sodium/Dextrose 1 (gm/ Premix) 50 mls @ 100 mls/hr IV Q24H [facility] Last Admin: 05/05/16 15:48 Dose: 100 mls/hr Piperacillin Sod/Tazobactam (Sod 3.375 gm/ Sodium Chloride) 50 mls @ 100 mls/ hr IV Q6H [facility] Last Admin: 05/08/16 09:29 Dose: 100 mls/hr Vancomycin HCl 1 gm/ Sodium (Chloride) 250 mls @ 166.667 mls/hr IV Q12H [facility] Last Admin: 05/08/16 11:42 Dose: Not Given Lansoprazole (Prevacid Solutab) 15 mg PO DAILY [facility] Last Admin: 05/06/16 09:26 Dose: 15 mg Lansoprazole (Prevacid Solutab) 15 mg PO BID [facility] Last Admin: 05/08/16 09:28 Dose: 15 mg Lorazepam (Ativan) 0.5 mg IVPUSH Q4H PRN PRN Reason: Anxiety Melatonin (Melatonin) 3 mg PO BEDTIME [facility] Last Admin: 05/07/16 22:05 Dose: 3 mg Memantine (Namenda Xr) 21 mg PO DAILY [facility] Last Admin: 05/03/16 11:02 Dose: Not Given Methylprednisolone Sodium Succinate (Solu-Medrol) 125 mg IVPUSH ONETIME ONE Stop: 05/02/16 12:08 Last Admin: 05/02/16 12:22 Dose: 125 mg Methylprednisolone Sodium Succinate (Solu-Medrol) 125 mg IVPUSH Q8HR [facility] Last Admin: 05/08/16 06:51 Dose: 125 mg Multivitamins/Minerals (Thera M Plus) 1 tab PO DAILY [facility] Last Admin: 05/08/16 09:28 Dose: 1 tab Non-Formulary Medication (Theophylline) 300 mg PO DAILY [facility] Ondansetron HCl (Zofran Odt) 4 mg PO Q4H PRN PRN Reason: nausea, able to take PO Ondansetron HCl (Zofran) 4 mg IVPUSH Q4H PRN PRN Reason: Nausea/Vomiting Last Admin: 05/07/16 22:43 Dose: 4 mg Oseltamivir Phosphate (Tamiflu) 75 mg PO ONETIME ONE Stop: 05/02/16 12:09 Last Admin: 05/02/16 12:22 Dose: 75 mg Oseltamivir Phosphate (Oseltamivir Phosphate) 30 mg PO Q24H [facility] Oseltamivir Phosphate (Oseltamivir Phosphate) 30 mg PO BID [facility] Last Admin: 05/03/16 10:11 Dose: 30 mg Oseltamivir Phosphate (Tamiflu) 75 mg PO BID [facility] Last Admin: 05/08/16 11:42 Dose: Not Given Memantine Hcl 21 Mg (Cap) 1 each PO DAILY [facility] Theophylline 300 Mg (Tab.Er) 1 each PO DAILY [facility] Last Admin: 05/08/16 09:29 Dose: 1 each Memantine Hcl 21 Mg (Cap) 1 each PO DAILY [facility] Last Admin: 05/08/16 09:29 Dose: 1 each Fluticasone/Salmeterol (Advair Diskus 250-50) 1 puff INH BID [facility] Last Admin: 05/08/16 09:00 Dose: 1 inhalation Sertraline HCl (Zoloft) 75 mg PO DAILY [facility] Last Admin: 05/03/16 11:03 Dose: Not Given Sertraline HCl (Zoloft) 75 mg PO BEDTIME [facility] Last Admin: 05/07/16 22:05 Dose: 75 mg Sodium Chloride (Saline Flush) 10 ml FLUSH ASDIRECTED PRN PRN Reason: Keep Vein Open Last Admin: 05/02/16 12:22 Dose: 10 ml Sodium Chloride (Saline Flush) 2.5 ml FLUSH ASDIRECTED PRN PRN Reason: Keep Vein Open Last Admin: 05/02/16 12:22 Dose: 2.5 ml Temazepam (Restoril) 15 mg PO BEDTIME PRN PRN Reason: Sleep Theophylline (Theophylline Anhydrous) 200 mg PO DAILY [facility] Last Admin: 05/03/16 10:23 Dose: 200 mg Vancomycin HCl (Pharmacy To Dose - Vancomycin) 1 dose .XX ASDIRECTED [facility] - Exam Quality Assessment: Reports: supplemental oxygen, DVT prophylaxis General: Reports: alert, oriented, cooperative, no acute distress HEENT: Reports: Pupils equal, Pupils reactive, EOMI, Mucous membr. moist/pink Neck: Reports: supple, trachea midline, no JVD Lungs: Reports: Normal respiratory effort, Crackles, Wheezing Cardiovascular: Reports: Regular Rate, Regular Rhythm Abdomen: Reports: bowel sounds present, soft, no tenderness, no distension Back Exam: Reports: normal inspection, full range of motion Extremities: Reports: no edema, normal pulses, no tenderness/swelling, no calf tenderness Skin: Reports: warm, dry, intact Neurological: Reports: no new focal deficit Psy/Mental Status: Reports: alert, normal affect, normal mood Original Note: <Ravi Man - Last Filed: 05/08/16 15:50> Discharge Summary - Hospital Course HPI Initial Comments: 75 yo female admitted 05/02/16 for dyspnea found to be influenza B positive with suspected COPD exacerbation and pmh of severe COPD and mild dementia. Brief History: Patient intially presented to ED with a history of fever starting on 05/01/16 max tem 102. She had a cough for several days which she felt was due to congestion. Patient did have a hisotry of chronic bronchitis. She initially reported that she did not feel more short of breath. Patient did state that she has oxygen at home and uses it when necessary. She had nebulizer treatments and also takes theophylline. Patient denied any cardiac history and presented with no chest pain, sore throat, runny nose, nausea, vomiting, or abdominal pain. She did have 2 loose stools last evening but none on day of admission. She had no urinary complaints no rashes and did not feel dizzy or lightheaded. The patient report that she had recieved influenza vaccination in November. - Discharge Data Discharge Date: 05/08/16 Discharge Disposition: Home, Self-Care 01 Condition: Good - Discharge Diagnosis/Problem(s) (1) COPD exacerbation SNOMED Code(s): 953545086, [id number] ICD Code: J44.1 - CHRONIC OBSTRUCTIVE PULMONARY DISEASE W (ACUTE) EXACERBATION Status: Acute Priority: High (2) Influenza B SNOMED Code(s): 33680654 ICD Code: J10.1 - FLU DUE TO OTH IDENT INFLUENZA VIRUS W OTH RESP MANIFEST Status: Acute Priority: High - Patient Summary/Data Consults: Consultations 05/05/16 11:15 PT Evaluation and Treatment [CONS] Routine Hospital Course: In ED, Inital labs showed no leukocytosis, normal lactate, and an unremarkable CMP. CXR revealed no acute cardiopulmonary process. Influenza screen was positive for influenza B. Patient was admitted for dyspnea, COPD Exacerbation and influenza B. Patient was treated for influenza with Tamiflu. Her COPD exacerbation was treated with IV solu-medrol and duonebs q 4 hrs. She was also covered for possible pneumonia with Azithromycin and Rocephin. Patient did well througout her stay and had a slow improvement in her overall respiratory status. She was treated for 7 days with IV antibiotics as well as 5 days with Tamiflu. On 05/08/16 patient was discharge in good condition with a prescription for prednisone taper, zofran, and follow-up appointment with her PCP, Dr. Beckford. Dr. Beckford was informed of the patient's status on day of discharge. Patient and family were instructed to return to the ED if she had any worsen symptoms. - Patient Instructions Diet: Usual Diet as Tolerated Activity: Rest and Relax Today Driving: Do Not Drive Showering/Bathing: May Shower Notify Provider of: Fever, Increased Pain, Nausea and/or Vomiting Other/Special Instructions: Follow-up with Dr. Beckford as scheduled. Take medications as prescribed. Return to ED if having increased respiratory difficulty or fevers. - Discharge Plan Prescriptions/Med Rec: Ondansetron HCl [Zofran] 4 mg PO Q4HR PRN #18 tablet PRN Reason: Nausea Prednisone [IJD: predniSONE] 20 mg PO WITHBREAKFAST #30 tab Home Medications: Home Meds Albuterol [Ventolin HFA] 2 puff INH Q6H PRN 07/17/14 [History] Albuterol/Ipratropium [DuoNeb 3.0-0.5 MG/3 ML] 3 ml NEB Q6HRRT PRN 07/17/14 [ History] Ca Carbonate/Vitamin D3/Vit K [Citracal Soft Chew] 1 each PO BEDTIME 07/17/14 [ History] Fluticasone/Salmeterol [Advair 250-50] 1 puff INH BID 07/17/14 [History] Memantine HCl [Namenda Xr] 21 mg PO DAILY 07/17/14 [History] Montelukast [Singulair] 10 mg PO BEDTIME 07/17/14 [History] Multivit-Min/FA/Lycopene/Lut [Centrum Silver Tablet] 1 each PO DAILY 07/17/14 [ History] Benzonatate [Tessalon Perles] 100 mg PO TID PRN 05/02/16 [History] Fexofenadine [Joyce] 180 mg PO DAILY 05/02/16 [History] Fluticasone Propionate 1 spray NS DAILY PRN 05/02/16 [History] Melatonin 3 mg PO BEDTIME 05/02/16 [History] Nicotine [Nicotrol NS] 1 spray NS Q6H PRN 05/02/16 [History] Theophylline [Theophylline Anhydrous] 300 mg PO DAILY 05/03/16 [History] Memantine HCl [Namenda] 5 mg PO BEDTIME 05/04/16 [History] Sertraline [Zoloft] 75 mg PO BEDTIME 05/04/16 [History] Sodium Chloride 0.9% 3 ml IH ASDIRECTED PRN 05/04/16 [History] Ondansetron HCl [Zofran] 4 mg PO Q4HR PRN #18 tablet 05/08/16 [Rx] Prednisone [IJD: predniSONE] 20 mg PO WITHBREAKFAST #30 tab 05/08/16 [Rx] Patient Handouts: Chronic Obstructive Pulmonary Disease Exacerbation, Easy-to- Read, Ondansetron tablets, Influenza, Adult, Prednisolone tablets Referrals: Isaias Watson DO [Primary Care Provider] - 05/18/16 2:30 pm - Discharge Summary/Plan Comment DC Time >30 min.: Yes Discharge Summary/Plan Comment: 75 yo female admitted 05/02/16 for dyspnea found to be influenza B positive with suspected COPD exacerbation and pmh of severe COPD and mild dementia. Patient intially presented to ED with a history of fever starting on 05/01/16 max tem 102. She had a cough for several days which she felt was due to congestion. Patient did have a hisotry of chronic bronchitis. She initially reported that she did not feel more short of breath. Patient did state that she has oxygen at home and uses it when necessary. She had nebulizer treatments and also takes theophylline. Patient denied any cardiac history and presented with no chest pain, sore throat, runny nose, nausea, vomiting, or abdominal pain. She did have 2 loose stools last evening but none on day of admission. She had no urinary complaints no rashes and did not feel dizzy or lightheaded. The patient report that she had recieved influenza vaccination in November. In ED, Inital labs showed no leukocytosis, normal lactate, and an unremarkable CMP. CXR revealed no acute cardiopulmonary process. Influenza screen was positive for influenza B. Patient was admitted for dyspnea, COPD Exacerbation and influenza B. Patient was treated for influenza with Tamiflu. Her COPD exacerbation was treated with IV solu-medrol and duonebs q 4 hrs. She was also covered for possible pneumonia with Azithromycin and Rocephin. Patient did well througout her stay and had a slow improvement in her overall respiratory status. She was treated for 7 days with IV antibiotics as well as 5 days with Tamiflu. On 05/08/16 patient was discharge in good condition with a prescription for prednisone taper, zofran, and follow-up appointment with her PCP, Dr. Beckford. Dr. Beckford was informed of the patient's status on day of discharge. Patient and family were instructed to return to the ED if she had any worsen symptoms. Patient most likely had influenza B with a mild COPD exacerbation. I do not feel the patient had a pneumonia as evident by unchanged CXR and lack of leukocytosis. However, she did recieve full treatment for CAP. - Patient Data Vitals - Most Recent: Last Vital Signs Temp 36.2 C 05/08/16 07:00 Pulse 89 05/08/16 11:00 Resp 18 05/08/16 11:00 BP 135/72 05/08/16 11:00 Pulse Ox 96 05/08/16 11:00 Weight - Most Recent: 68.084 kg I&O - Last 24 hours: Intake & Output 05/08/16 05/08/16 05/08/16 06:59 14:59 22:59 Intake Total 850 500 Output Total 400 Balance 850 100 Lab Results - Last 24 hrs: Laboratory Results - last 24 hr 05/07/16 05/08/16 05/08/16 Range/Units 21:59 06:05 06:05 WBC 9.83 (4.0-11.0) K/uL RBC 4.10 L (4.30-5.90) M/uL Hgb 11.8 L (12.0-16.0) g/dL Hct 36.2 (36.0-46.0) % MCV 88.3 (80.0-98.0) fL MCH 28.8 (27.0-32.0) pg MCHC 32.6 (31.0-37.0) g/dL RDW Std Deviation 47.3 (28.0-62.0) fl RDW Coeff of Nikhil 15 (11.0-15.0) % Plt Count 222 (150-400) K/uL MPV 9.20 (7.40-12.00) fL Add Manual Diff YES Neutrophils % (Manual) 84 H (48.0-80.0) % Band Neutrophils % 3 % Lymphocytes % (Manual) 5 L (16.0-40.0) % Monocytes % (Manual) 8 (0.0-15.0) % Nucleated RBC % 0.0 /100WBC Absolute Seg Neuts 8.3 Band Neutrophils # 0.3 Lymphocytes # (Manual) 0.5 Monocytes # (Manual) 0.8 Nucleated RBCs # 0 K/uL Sodium 142 (136-146) mmol/L Potassium 4.3 (3.5-5.1) mmol/L Chloride 111 H (98-110) mmol/L Carbon Dioxide 21 (21-31) mmol/L BUN 24 H (6.0-23.0) mg/dL Creatinine 0.9 (0.6-1.5) mg/dL Est Cr Clr Drug Dosing 42.06 mL/min Estimated GFR (MDRD) > 60.0 ml/min Glucose 160 H (60-110) mg/dL Calcium 7.9 L (8.8-10.8) mg/dL Total Bilirubin 0.3 (0.1-1.5) mg/dL AST 33 (5-40) IU/L ALT 87 H (8-54) IU/L Alkaline Phosphatase 61 (40-150) Total Protein 5.3 L (6.0-8.0) g/dL Albumin 2.9 L (3.4-4.8) g/dL Globulin 2.4 (2.0-3.5) g/dL Albumin/Globulin Ratio 1.2 L (1.3-2.8) Vancomycin Trough 13.2 (5-15) ug/mL Med Orders - Current: Current Medications Discontinued Medications Acetaminophen (Tylenol) 650 mg PO Q4H PRN PRN Reason: Pain (Mild 1-3)/fever Last Admin: 05/06/16 11:24 Dose: 650 mg Al Hydroxide/Mg Hydroxide (Mag-Al Plus) 15 ml PO Q4H PRN PRN Reason: Heartburn Albuterol (Proventil Neb Soln) 2.5 mg NEB Q2H PRN PRN Reason: Shortness of Breath Last Admin: 05/07/16 15:34 Dose: 2.5 mg Albuterol/Ipratropium (Duoneb 3.0-0.5 Mg/3 Ml) 3 ml NEB ONETIME ONE Stop: 05/02/16 10:27 Last Admin: 05/02/16 10:43 Dose: 3 ml Albuterol/Ipratropium (Duoneb 3.0-0.5 Mg/3 Ml) 3 ml NEB Q4HRRT [facility] Last Admin: 05/08/16 09:41 Dose: 3 ml Alprazolam (Xanax) 0.5 mg PO Q6H PRN PRN Reason: Anxiety Last Admin: 05/07/16 19:30 Dose: 0.25 mg Alprazolam (Xanax) 0.5 mg PO TID PRN PRN Reason: Anxiety Last Admin: 05/04/16 19:40 Dose: 0.5 mg Benzonatate (Tessalon Perles) 200 mg PO ONETIME ONE Stop: 05/02/16 12:37 Last Admin: 05/02/16 12:58 Dose: 200 mg Benzonatate (Tessalon Perles) 100 mg PO TID PRN PRN Reason: Cough Last Admin: 05/02/16 20:21 Dose: 100 mg Benzonatate (Tessalon Perles) 200 mg PO TID PRN PRN Reason: Cough Last Admin: 05/07/16 19:31 Dose: 200 mg Bisacodyl (Dulcolax) 5 mg PO DAILY PRN PRN Reason: Constipation Calcium Carbonate/Glycine (Tums) 1,000 mg PO ONETIME ONE Stop: 05/04/16 09:46 Last Admin: 05/04/16 11:12 Dose: 1,000 mg Calcium Carbonate/Glycine (Tums) 1,000 mg PO ONETIME ONE Stop: 05/07/16 08:06 Last Admin: 05/07/16 09:23 Dose: 1,000 mg Diphenhydramine HCl (Benadryl) 50 mg PO TID PRN PRN Reason: itchiness Last Admin: 05/06/16 14:22 Dose: 50 mg Donepezil HCl (Aricept) 10 mg PO BEDTIME [facility] Last Admin: 05/02/16 20:20 Dose: 10 mg Donepezil HCl (Aricept) 10 mg PO DAILY [facility] Last Admin: 05/04/16 11:05 Dose: 10 mg Donepezil HCl (Aricept) 5 mg PO DAILY [facility] Last Admin: 05/08/16 09:28 Dose: 5 mg Levofloxacin/Dextrose 500 mg/ (Premix) 100 mls @ 100 mls/hr IV Q24H [facility] Azithromycin 500 mg/ Sodium (Chloride) 250 mls @ 250 mls/hr IV Q24H [facility] Last Admin: 05/07/16 16:21 Dose: 250 mls/hr Ceftriaxone Sodium/Dextrose 1 (gm/ Premix) 50 mls @ 100 mls/hr IV Q24H [facility] Last Admin: 05/05/16 15:48 Dose: 100 mls/hr Piperacillin Sod/Tazobactam (Sod 3.375 gm/ Sodium Chloride) 50 mls @ 100 mls/ hr IV Q6H [facility] Last Admin: 05/08/16 09:29 Dose: 100 mls/hr Vancomycin HCl 1 gm/ Sodium (Chloride) 250 mls @ 166.667 mls/hr IV Q12H [facility] Last Admin: 05/08/16 11:42 Dose: Not Given Lansoprazole (Prevacid Solutab) 15 mg PO DAILY [facility] Last Admin: 05/06/16 09:26 Dose: 15 mg Lansoprazole (Prevacid Solutab) 15 mg PO BID [facility] Last Admin: 05/08/16 09:28 Dose: 15 mg Lorazepam (Ativan) 0.5 mg IVPUSH Q4H PRN PRN Reason: Anxiety Melatonin (Melatonin) 3 mg PO BEDTIME [facility] Last Admin: 05/07/16 22:05 Dose: 3 mg Memantine (Namenda Xr) 21 mg PO DAILY [facility] Last Admin: 05/03/16 11:02 Dose: Not Given Methylprednisolone Sodium Succinate (Solu-Medrol) 125 mg IVPUSH ONETIME ONE Stop: 05/02/16 12:08 Last Admin: 05/02/16 12:22 Dose: 125 mg Methylprednisolone Sodium Succinate (Solu-Medrol) 125 mg IVPUSH Q8HR [facility] Last Admin: 05/08/16 06:51 Dose: 125 mg Multivitamins/Minerals (Thera M Plus) 1 tab PO DAILY [facility] Last Admin: 05/08/16 09:28 Dose: 1 tab Non-Formulary Medication (Theophylline) 300 mg PO DAILY [facility] Ondansetron HCl (Zofran Odt) 4 mg PO Q4H PRN PRN Reason: nausea, able to take PO Ondansetron HCl (Zofran) 4 mg IVPUSH Q4H PRN PRN Reason: Nausea/Vomiting Last Admin: 05/07/16 22:43 Dose: 4 mg Oseltamivir Phosphate (Tamiflu) 75 mg PO ONETIME ONE Stop: 05/02/16 12:09 Last Admin: 05/02/16 12:22 Dose: 75 mg Oseltamivir Phosphate (Oseltamivir Phosphate) 30 mg PO Q24H [facility] Oseltamivir Phosphate (Oseltamivir Phosphate) 30 mg PO BID [facility] Last Admin: 05/03/16 10:11 Dose: 30 mg Oseltamivir Phosphate (Tamiflu) 75 mg PO BID [facility] Last Admin: 05/08/16 11:42 Dose: Not Given Memantine Hcl 21 Mg (Cap) 1 each PO DAILY [facility] Theophylline 300 Mg (Tab.Er) 1 each PO DAILY [facility] Last Admin: 05/08/16 09:29 Dose: 1 each Memantine Hcl 21 Mg (Cap) 1 each PO DAILY [facility] Last Admin: 05/08/16 09:29 Dose: 1 each Fluticasone/Salmeterol (Advair Diskus 250-50) 1 puff INH BID [facility] Last Admin: 05/08/16 09:00 Dose: 1 inhalation Sertraline HCl (Zoloft) 75 mg PO DAILY [facility] Last Admin: 05/03/16 11:03 Dose: Not Given Sertraline HCl (Zoloft) 75 mg PO BEDTIME [facility] Last Admin: 05/07/16 22:05 Dose: 75 mg Sodium Chloride (Saline Flush) 10 ml FLUSH ASDIRECTED PRN PRN Reason: Keep Vein Open Last Admin: 05/02/16 12:22 Dose: 10 ml Sodium Chloride (Saline Flush) 2.5 ml FLUSH ASDIRECTED PRN PRN Reason: Keep Vein Open Last Admin: 05/02/16 12:22 Dose: 2.5 ml Temazepam (Restoril) 15 mg PO BEDTIME PRN PRN Reason: Sleep Theophylline (Theophylline Anhydrous) 200 mg PO DAILY [facility] Last Admin: 05/03/16 10:23 Dose: 200 mg Vancomycin HCl (Pharmacy To Dose - Vancomycin) 1 dose .XX ASDIRECTED [facility] *Q Meaningful Use (DIS) - VTE *Q VTE Criteria *Q: - Stroke *Q Stroke Criteria *Q: - AMI *Q AMI Criteria *Q: <Ravin Conner O - Last Filed: 05/08/16 15:58> Discharge Summary - Patient Summary/Data Consults: Consultations 05/05/16 11:15 PT Evaluation and Treatment [CONS] Routine - Discharge Summary/Plan Comment Discharge Summary/Plan Comment: I was present with the resident during the history and exam. I discussed the case with the resident and agree with the findings and plan as documented in the resident's note - Patient Data Vitals - Most Recent: Last Vital Signs Temp 36.2 C 05/08/16 07:00 Pulse 89 05/08/16 11:00 Resp 18 05/08/16 11:00 BP 135/72 05/08/16 11:00 Pulse Ox 96 05/08/16 11:00 I&O - Last 24 hours: Intake & Output 05/08/16 05/08/16 05/08/16 06:59 14:59 22:59 Intake Total 850 500 Output Total 400 Balance 850 100 Lab Results - Last 24 hrs: Laboratory Results - last 24 hr 05/07/16 05/08/16 05/08/16 Range/Units 21:59 06:05 06:05 WBC 9.83 (4.0-11.0) K/uL RBC 4.10 L (4.30-5.90) M/uL Hgb 11.8 L (12.0-16.0) g/dL Hct 36.2 (36.0-46.0) % MCV 88.3 (80.0-98.0) fL MCH 28.8 (27.0-32.0) pg MCHC 32.6 (31.0-37.0) g/dL RDW Std Deviation 47.3 (28.0-62.0) fl RDW Coeff of Nikhil 15 (11.0-15.0) % Plt Count 222 (150-400) K/uL MPV 9.20 (7.40-12.00) fL Add Manual Diff YES Neutrophils % (Manual) 84 H (48.0-80.0) % Band Neutrophils % 3 % Lymphocytes % (Manual) 5 L (16.0-40.0) % Monocytes % (Manual) 8 (0.0-15.0) % Nucleated RBC % 0.0 /100WBC Absolute Seg Neuts 8.3 Band Neutrophils # 0.3 Lymphocytes # (Manual) 0.5 Monocytes # (Manual) 0.8 Nucleated RBCs # 0 K/uL Sodium 142 (136-146) mmol/L Potassium 4.3 (3.5-5.1) mmol/L Chloride 111 H (98-110) mmol/L Carbon Dioxide 21 (21-31) mmol/L BUN 24 H (6.0-23.0) mg/dL Creatinine 0.9 (0.6-1.5) mg/dL Est Cr Clr Drug Dosing 42.06 mL/min Estimated GFR (MDRD) > 60.0 ml/min Glucose 160 H (60-110) mg/dL Calcium 7.9 L (8.8-10.8) mg/dL Total Bilirubin 0.3 (0.1-1.5) mg/dL AST 33 (5-40) IU/L ALT 87 H (8-54) IU/L Alkaline Phosphatase 61 (40-150) Total Protein 5.3 L (6.0-8.0) g/dL Albumin 2.9 L (3.4-4.8) g/dL Globulin 2.4 (2.0-3.5) g/dL Albumin/Globulin Ratio 1.2 L (1.3-2.8) Vancomycin Trough 13.2 (5-15) ug/mL Med Orders - Current: Current Medications Discontinued Medications Acetaminophen (Tylenol) 650 mg PO Q4H PRN PRN Reason: Pain (Mild 1-3)/fever Last Admin: 05/06/16 11:24 Dose: 650 mg Al Hydroxide/Mg Hydroxide (Mag-Al Plus) 15 ml PO Q4H PRN PRN Reason: Heartburn Albuterol (Proventil Neb Soln) 2.5 mg NEB Q2H PRN PRN Reason: Shortness of Breath Last Admin: 05/07/16 15:34 Dose: 2.5 mg Albuterol/Ipratropium (Duoneb 3.0-0.5 Mg/3 Ml) 3 ml NEB ONETIME ONE Stop: 05/02/16 10:27 Last Admin: 05/02/16 10:43 Dose: 3 ml Albuterol/Ipratropium (Duoneb 3.0-0.5 Mg/3 Ml) 3 ml NEB Q4HRRT [facility] Last Admin: 05/08/16 09:41 Dose: 3 ml Alprazolam (Xanax) 0.5 mg PO Q6H PRN PRN Reason: Anxiety Last Admin: 05/07/16 19:30 Dose: 0.25 mg Alprazolam (Xanax) 0.5 mg PO TID PRN PRN Reason: Anxiety Last Admin: 05/04/16 19:40 Dose: 0.5 mg Benzonatate (Tessalon Perles) 200 mg PO ONETIME ONE Stop: 05/02/16 12:37 Last Admin: 05/02/16 12:58 Dose: 200 mg Benzonatate (Tessalon Perles) 100 mg PO TID PRN PRN Reason: Cough Last Admin: 05/02/16 20:21 Dose: 100 mg Benzonatate (Tessalon Perles) 200 mg PO TID PRN PRN Reason: Cough Last Admin: 05/07/16 19:31 Dose: 200 mg Bisacodyl (Dulcolax) 5 mg PO DAILY PRN PRN Reason: Constipation Calcium Carbonate/Glycine (Tums) 1,000 mg PO ONETIME ONE Stop: 05/04/16 09:46 Last Admin: 05/04/16 11:12 Dose: 1,000 mg Calcium Carbonate/Glycine (Tums) 1,000 mg PO ONETIME ONE Stop: 05/07/16 08:06 Last Admin: 05/07/16 09:23 Dose: 1,000 mg Diphenhydramine HCl (Benadryl) 50 mg PO TID PRN PRN Reason: itchiness Last Admin: 05/06/16 14:22 Dose: 50 mg Donepezil HCl (Aricept) 10 mg PO BEDTIME [facility] Last Admin: 05/02/16 20:20 Dose: 10 mg Donepezil HCl (Aricept) 10 mg PO DAILY [facility] Last Admin: 05/04/16 11:05 Dose: 10 mg Donepezil HCl (Aricept) 5 mg PO DAILY [facility] Last Admin: 05/08/16 09:28 Dose: 5 mg Levofloxacin/Dextrose 500 mg/ (Premix) 100 mls @ 100 mls/hr IV Q24H [facility] Azithromycin 500 mg/ Sodium (Chloride) 250 mls @ 250 mls/hr IV Q24H [facility] Last Admin: 05/07/16 16:21 Dose: 250 mls/hr Ceftriaxone Sodium/Dextrose 1 (gm/ Premix) 50 mls @ 100 mls/hr IV Q24H [facility] Last Admin: 05/05/16 15:48 Dose: 100 mls/hr Piperacillin Sod/Tazobactam (Sod 3.375 gm/ Sodium Chloride) 50 mls @ 100 mls/ hr IV Q6H [facility] Last Admin: 05/08/16 09:29 Dose: 100 mls/hr Vancomycin HCl 1 gm/ Sodium (Chloride) 250 mls @ 166.667 mls/hr IV Q12H [facility] Last Admin: 05/08/16 11:42 Dose: Not Given Lansoprazole (Prevacid Solutab) 15 mg PO DAILY [facility] Last Admin: 05/06/16 09:26 Dose: 15 mg Lansoprazole (Prevacid Solutab) 15 mg PO BID [facility] Last Admin: 05/08/16 09:28 Dose: 15 mg Lorazepam (Ativan) 0.5 mg IVPUSH Q4H PRN PRN Reason: Anxiety Melatonin (Melatonin) 3 mg PO BEDTIME [facility] Last Admin: 05/07/16 22:05 Dose: 3 mg Memantine (Namenda Xr) 21 mg PO DAILY [facility] Last Admin: 05/03/16 11:02 Dose: Not Given Methylprednisolone Sodium Succinate (Solu-Medrol) 125 mg IVPUSH ONETIME ONE Stop: 05/02/16 12:08 Last Admin: 05/02/16 12:22 Dose: 125 mg Methylprednisolone Sodium Succinate (Solu-Medrol) 125 mg IVPUSH Q8HR [facility] Last Admin: 05/08/16 06:51 Dose: 125 mg Multivitamins/Minerals (Thera M Plus) 1 tab PO DAILY [facility] Last Admin: 05/08/16 09:28 Dose: 1 tab Non-Formulary Medication (Theophylline) 300 mg PO DAILY [facility] Ondansetron HCl (Zofran Odt) 4 mg PO Q4H PRN PRN Reason: nausea, able to take PO Ondansetron HCl (Zofran) 4 mg IVPUSH Q4H PRN PRN Reason: Nausea/Vomiting Last Admin: 05/07/16 22:43 Dose: 4 mg Oseltamivir Phosphate (Tamiflu) 75 mg PO ONETIME ONE Stop: 05/02/16 12:09 Last Admin: 05/02/16 12:22 Dose: 75 mg Oseltamivir Phosphate (Oseltamivir Phosphate) 30 mg PO Q24H [facility] Oseltamivir Phosphate (Oseltamivir Phosphate) 30 mg PO BID [facility] Last Admin: 05/03/16 10:11 Dose: 30 mg Oseltamivir Phosphate (Tamiflu) 75 mg PO BID [facility] Last Admin: 05/08/16 11:42 Dose: Not Given Memantine Hcl 21 Mg (Cap) 1 each PO DAILY [facility] Theophylline 300 Mg (Tab.Er) 1 each PO DAILY [facility] Last Admin: 05/08/16 09:29 Dose: 1 each Memantine Hcl 21 Mg (Cap) 1 each PO DAILY [facility] Last Admin: 05/08/16 09:29 Dose: 1 each Fluticasone/Salmeterol (Advair Diskus 250-50) 1 puff INH BID [facility] Last Admin: 05/08/16 09:00 Dose: 1 inhalation Sertraline HCl (Zoloft) 75 mg PO DAILY [facility] Last Admin: 05/03/16 11:03 Dose: Not Given Sertraline HCl (Zoloft) 75 mg PO BEDTIME [facility] Last Admin: 05/07/16 22:05 Dose: 75 mg Sodium Chloride (Saline Flush) 10 ml FLUSH ASDIRECTED PRN PRN Reason: Keep Vein Open Last Admin: 05/02/16 12:22 Dose: 10 ml Sodium Chloride (Saline Flush) 2.5 ml FLUSH ASDIRECTED PRN PRN Reason: Keep Vein Open Last Admin: 05/02/16 12:22 Dose: 2.5 ml Temazepam (Restoril) 15 mg PO BEDTIME PRN PRN Reason: Sleep Theophylline (Theophylline Anhydrous) 200 mg PO DAILY [facility] Last Admin: 05/03/16 10:23 Dose: 200 mg Vancomycin HCl (Pharmacy To Dose - Vancomycin) 1 dose .XX ASDIRECTED [facility] *Q Meaningful Use (DIS) - VTE *Q VTE Criteria *Q: - Stroke *Q Stroke Criteria *Q: - AMI *Q AMI Criteria *Q:
== END 2016-05-08 12:45 | disposition home or self-care (01) | DRG 192 ==
LOC: MW.ED 10:05 → MW.MS 12:27 → OBSVTOIN 05-04 12:42 → MW.MS 05-04 12:52
PROVIDERS: ADMIT Family Medicine; ATTEND Family Medicine
DX: J44.1 Chronic obstructive pulmonary disease with (acute) exacerbation (principal); J45.909 Unspecified asthma, uncomplicated; R09.02 Hypoxemia; J10.1 Influenza due to other identified influenza virus with other respiratory manifestations; F03.90 Unspecified dementia, unspecified severity, without behavioral disturbance, psychotic disturbance, mood disturbance, and anxiety; F41.8 Other specified anxiety disorders; Z79.899 Other long term (current) drug therapy; Z88.8 Allergy status to other drugs, medicaments and biological substances
CPT/HCPCS: 36415 ×3; 71020; 80048 ×2; 80053; 83605; 83735; 85025 ×3; 87040 ×2; 87804 ×2; 94640 ×9; 94664 ×3; 96365 ×2; 96367; 96375 ×2; 96376 ×3; 99285; A9270 ×21; G0378 ×2; J0456 ×2; J0696 ×2; J2405; J2930 ×6; J7050 ×2; 71010; 71010-26; 80202; 96374; 97161-GP; J2543; J3370

== ENCOUNTER → 2016-05-18 | Outpatient (CLI) | payer MEDICARE, BC | LOC: MW.CHIM 08:00 | PROVIDERS: ATTEND Internal Medicine | DX: F41.9 Anxiety disorder, unspecified (principal); J44.9 Chronic obstructive pulmonary disease, unspecified; F32.9 Major depressive disorder, single episode, unspecified; F03.90 Unspecified dementia, unspecified severity, without behavioral disturbance, psychotic disturbance, mood disturbance, and anxiety | CPT/HCPCS: 99214 ==

== ENCOUNTER 2017-08-08 20:16 | Emergency (ER) | payer MEDICARE, BC ==
[2017-08-08 20:29] VITALS: BP 136/54
[2017-08-08] MEDS ORDERED: Sodium Chloride 0.9% 2.5 ML Syringe FLUSH PRN ×2 (20:35→20:44)
[2017-08-08] MEDS ORDERED: Sodium Chloride 0.9% 10 ML Syringe FLUSH PRN ×2 (20:35→20:44)
--- NOTE | 2017-08-08 20:35 | EDM.PDOC ---
<Fernanda Merida - Last Filed: 08/08/17 21:53> ED HPI GENERAL MEDICAL PROBLEM - General Chief Complaint: Abdominal Pain Stated Complaint: LOWER RIGHT ABDOMINAL PAIN Time Seen by Provider: 08/08/17 20:34 Source of Information: Reports: Patient History Limitations: Reports: No Limitations - History of Present Illness INITIAL COMMENTS - FREE TEXT/NARRATIVE: HISTORY AND PHYSICAL: []77-year-old female is brought in by her caregiver with concerns of abdominal pain History of Present Illness: []Patient has history of COPD difficulty breathing she is on oxygen at home at night several days with his abdominal pain also worsening in symptoms dementia Review of Systems: As per history of present illness and below otherwise all systems reviewed and negative. Past medical history: As per history of present illness and as reviewed below otherwise noncontributory. Surgical history: As per history of present illness and as reviewed below otherwise noncontributory. Social history: No reported history of drug or alcohol abuse. Family history: As per history of present illness and as reviewed below otherwise noncontributory. Physical exam: Alert answering questions in full sentences speaking quite rapidly. NonToxic in appearance HEENT: Atraumatic, normocehpalic, pupils reactive, negative for conjunctival pallor or scleral icterus, mucous membranes moist, throat clear, neck supple, nontender, trachea midline. Lungs: Clear to auscultation, breath sounds equal bilaterally, chest non tender. shallow breath sounds Heart: S1S2, regular, negative for clicks, rubs, or JVD. Abdomen: Soft, nondistended, nontender. Negative for masses or hepatossplenmegaly. Negative for costovertebral tenderness. Pelvis: Stable nontender. Genitourinary: Deferred. Rectal: Deferred Extremities: Atraumatic, negative for cords or calf pain. Neurovascular unremarkable. Neuro: Awake, alert, oriented. Cranial nerves II through XII unremarkable. Cerebellum unremarkable. Motor and sensory unremarkable throughout. Exam nonfocal. Report of this patient has been given to Dr. Ravi Man who will continue with follow-up with this patient Diagnostics: []cbc, cmp, amylase, lipase,chest xray, Therapeutics: [] Impression: []Abdominal pain Plan: [] Definitive disposition and diagnosis as appropriate pending reevaluation and review of above. Onset: Gradual Duration: Getting Worse Location: Reports: Abdomen Quality: Reports: Throbbing Severity: Moderate Improves with: Reports: None Worsens with: Reports: None Abdomen Pain Score (Numeric/FACES): 5 - Related Data Allergies Allergy/AdvReac Type Severity Reaction Status Date / Time cetirizine HCl [From Zyrtec] Allergy Other Verified 08/08/17 20:22 haloperidol [From Haldol] Allergy Change Verified 08/08/17 20:22 Mental Status haloperidol lactate Allergy Change Verified 08/08/17 20:22 [From Haldol] Mental Status Latex, Natural Rubber Allergy Other Verified 08/08/17 20:22 levofloxacin [From Levaquin] Allergy Other Verified 08/08/17 20:22 lorazepam [From Ativan] Allergy Respiratory Verified 08/08/17 20:22 Depression morphine Allergy Respiratory Verified 10/22/15 13:24 Depression Home Meds: Home Meds Albuterol [Ventolin HFA] 2 puff INH Q6H PRN 07/17/14 [History] Albuterol/Ipratropium [DuoNeb 3.0-0.5 MG/3 ML] 3 ml NEB Q6HRRT PRN 07/17/14 [ History] Ca Carbonate/Vitamin D3/Vit K [Citracal Soft Chew] 1 each PO BEDTIME 07/17/14 [ History] Fluticasone/Salmeterol [Advair 250-50] 1 puff INH BID 07/17/14 [History] Memantine HCl [Namenda Xr] 21 mg PO DAILY 07/17/14 [History] Montelukast [Singulair] 10 mg PO BEDTIME 07/17/14 [History] Multivit-Min/FA/Lycopene/Lut [Centrum Silver Tablet] 1 each PO DAILY 07/17/14 [ History] Benzonatate [Tessalon Perles] 100 mg PO TID PRN 05/02/16 [History] Fexofenadine [Joyce] 180 mg PO DAILY 05/02/16 [History] Fluticasone Propionate 1 spray NS DAILY PRN 05/02/16 [History] Melatonin 3 mg PO BEDTIME 05/02/16 [History] Nicotine [Nicotrol NS] 1 spray NS Q6H PRN 05/02/16 [History] Theophylline [Theophylline Anhydrous] 300 mg PO DAILY 05/03/16 [History] Memantine HCl [Namenda] 5 mg PO BEDTIME 05/04/16 [History] Sertraline [Zoloft] 75 mg PO BEDTIME 05/04/16 [History] Sodium Chloride 0.9% 3 ml IH ASDIRECTED PRN 05/04/16 [History] Ondansetron HCl [Zofran] 4 mg PO Q4HR PRN #18 tablet 05/08/16 [Rx] Prednisone [IJD: predniSONE] 20 mg PO WITHBREAKFAST #30 tab 05/08/16 [Rx] Past Medical History HEENT History: Reports: None Cardiovascular History: Reports: None Respiratory History: Reports: Asthma, COPD, Pneumonia, Recurrent Gastrointestinal History: Reports: None Other Gastrointestinal History: acid reflux Genitourinary History: Reports: None [employer] History: Reports: Musculoskeletal History: Reports: Back Pain, Chronic Neurological History: Reports: Alzheimers Disease Psychiatric History: Reports: Anxiety, Depression Endocrine/Metabolic History: Reports: None Hematologic History: Reports: None Immunologic History: Reports: None Oncologic (Cancer) History: Reports: None Dermatologic History: Reports: None - Infectious Disease History Infectious Disease History: Reports: Chicken Pox, Measles, Mumps - Past Surgical History Head Surgeries/Procedures: Reports: None HEENT Surgical History: Reports: Tonsillectomy GI Surgical History: Reports: None Female Surgical History: Reports: Hysterectomy Social & Family History - Family History Family Medical History: Noncontributory Cardiac: Reports: MD Psychiatric: Reports: Anxiety, Depression Endocrine/Metabolic: Reports: Diabetes, type II - Tobacco Use Smoking Status *Q: Former Smoker Used Tobacco, but Quit: No - Caffeine Use Caffeine Use: Reports: Soda - Recreational Drug Use Recreational Drug Use: No - Living Situation & Occupation Occupation: Retired ED ROS GENERAL - Review of Systems Review Of Systems: ROS reveals no pertinent complaints other than HPI. ED EXAM, GI/ABD - Physical Exam Exam: See Below (see dictation) Course - Vital Signs Last Recorded V/S: Last Vital Signs Temp 97.5 F 08/08/17 20:22 Pulse 108 H 08/08/17 20:22 Resp 20 08/08/17 20:22 BP 136/54 L 08/08/17 20:22 Pulse Ox 95 08/08/17 20:22 - Orders/Labs/Meds Orders: Active Orders 24 hr Category Date Time Status Abdomen Pelvis w Cont [CT] Stat Exams 08/08/17 20:48 Stop Req Abdomen Pelvis wo Cont [CT] Stat Exams 08/08/17 21:10 Taken Chest 1V Frontal [CR] Stat Exams 08/08/17 20:48 Taken CULTURE URINE [RM] Stat Lab 08/08/17 20:35 Ordered DRUG SCREEN, URINE [URCHEM] Stat Lab 08/08/17 22:21 Ordered UA W/MICROSCOPIC [URIN] Stat Lab 08/08/17 22:21 Ordered Sodium Chloride 0.9% [Saline Flush] Med 08/08/17 20:35 Active 10 ml FLUSH ASDIRECTED PRN Sodium Chloride 0.9% [Saline Flush] Med 08/08/17 20:44 Active 10 ml FLUSH ASDIRECTED PRN Sodium Chloride 0.9% [Saline Flush] Med 08/08/17 20:35 Active 2.5 ml FLUSH ASDIRECTED PRN Sodium Chloride 0.9% [Saline Flush] Med 08/08/17 20:44 Active 2.5 ml FLUSH ASDIRECTED PRN Saline Lock Insert [OM.PC] Stat Oth 08/08/17 20:35 Ordered Saline Lock Insert [OM.PC] Stat Oth 08/08/17 20:44 Ordered Medication Orders Sodium Chloride (Saline Flush) 10 ml FLUSH ASDIRECTED PRN PRN Reason: Keep Vein Open Sodium Chloride (Saline Flush) 2.5 ml FLUSH ASDIRECTED PRN PRN Reason: Keep Vein Open Sodium Chloride (Saline Flush) 10 ml FLUSH ASDIRECTED PRN PRN Reason: Keep Vein Open Sodium Chloride (Saline Flush) 2.5 ml FLUSH ASDIRECTED PRN PRN Reason: Keep Vein Open Labs: Laboratory Tests 08/08/17 08/08/17 08/08/17 Range/Units 20:25 20:25 20:25 WBC 10.25 (4.0-11.0) K/uL RBC 4.54 (4.30-5.90) M/uL Hgb 11.0 L (12.0-16.0) g/dL Hct 35.2 L (36.0-46.0) % MCV 77.5 L (80.0-98.0) fL MCH 24.2 L (27.0-32.0) pg MCHC 31.3 (31.0-37.0) g/dL RDW Std Deviation 49.7 (28.0-62.0) fl RDW Coeff of Nikhil 18 H (11.0-15.0) % Plt Count 335 (150-400) K/uL MPV 9.20 (7.40-12.00) fL Neut % (Auto) 80.2 H (48.0-80.0) % Lymph % (Auto) 10.7 L (16.0-40.0) % [place] % (Auto) 6.7 (0.0-15.0) % Eos % (Auto) 2.0 (0.0-7.0) % Baso % (Auto) 0.4 (0.0-1.5) % Neut # (Auto) 8.2 H (1.4-5.7) K/uL Lymph # (Auto) 1.1 (0.6-2.4) K/uL [place] # (Auto) 0.7 (0.0-0.8) K/uL Eos # (Auto) 0.2 (0.0-0.7) K/uL Baso # (Auto) 0.0 (0.0-0.1) K/uL Nucleated RBC % 0.0 /100WBC Nucleated RBCs # 0 K/uL INR 0.97 Sodium 141 (136-145) mmol/L Potassium 3.8 (3.5-5.1) mmol/L Chloride 104 (98-107) mmol/L Carbon Dioxide 27.6 (21.0-32.0) mmol/L BUN 14 (7.0-18.0) mg/dL Creatinine 1.3 H (0.6-1.0) mg/dL Est Cr Clr Drug Dosing 28.21 mL/min Estimated GFR (MDRD) 39.6 ml/min Glucose 123 H (74-106) mg/dL Calcium 8.7 (8.5-10.1) mg/dL Total Bilirubin 0.2 (0.2-1.0) mg/dL AST 19 (15-37) IU/L ALT 23 (14-63) IU/L Alkaline Phosphatase 125 H (46-116) U/L Troponin I < 0.050 (0.000-0.056) ng/mL Total Protein 7.1 (6.4-8.2) g/dL Albumin 3.1 L (3.4-5.0) g/dL Globulin 4.0 H (2.0-3.5) g/dL Albumin/Globulin Ratio 0.8 L (1.3-2.8) Amylase 41 (25-115) U/L Lipase 188 (73-393) U/L Urine Color Urine Appearance Urine pH (5.0-8.0) Ur Specific [place] (1.001-1.035) Urine Protein (NEGATIVE) mg/dL Urine Glucose (UA) (NEGATIVE) mg/dL Urine Ketones (NEGATIVE) mg/dL Urine Occult Blood (NEGATIVE) Urine Nitrite (NEGATIVE) Urine Bilirubin (NEGATIVE) Urine Urobilinogen (<2.0) EU/dL Ur Leukocyte Esterase (NEGATIVE) Urine RBC (0-2/HPF) Urine WBC (0-5/HPF) Ur Epithelial Cells (NONE-FEW) Urine Bacteria (NEGATIVE) Urine Opiates Screen (NEGATIVE) Ur Oxycodone Screen (NEGATIVE) Urine Methadone Screen (NEGATIVE) Ur Barbiturates Screen (NEGATIVE) Ur Phencyclidine Scrn (NEGATIVE) Ur Amphetamine Screen (NEGATIVE) U Methamphetamines Scrn (NEGATIVE) U Benzodiazepines Scrn (NEGATIVE) U Cocaine Metab Screen (NEGATIVE) U Marijuana (THC) Screen (NEGATIVE) 08/08/17 08/08/17 Range/Units 22:21 22:21 WBC (4.0-11.0) K/uL RBC (4.30-5.90) M/uL Hgb (12.0-16.0) g/dL Hct (36.0-46.0) % MCV (80.0-98.0) fL MCH (27.0-32.0) pg MCHC (31.0-37.0) g/dL RDW Std Deviation (28.0-62.0) fl RDW Coeff of Nikhil (11.0-15.0) % Plt Count (150-400) K/uL MPV (7.40-12.00) fL Neut % (Auto) (48.0-80.0) % Lymph % (Auto) (16.0-40.0) % [place] % (Auto) (0.0-15.0) % Eos % (Auto) (0.0-7.0) % Baso % (Auto) (0.0-1.5) % Neut # (Auto) (1.4-5.7) K/uL Lymph # (Auto) (0.6-2.4) K/uL [place] # (Auto) (0.0-0.8) K/uL Eos # (Auto) (0.0-0.7) K/uL Baso # (Auto) (0.0-0.1) K/uL Nucleated RBC % /100WBC Nucleated RBCs # K/uL INR Sodium (136-145) mmol/L Potassium (3.5-5.1) mmol/L Chloride (98-107) mmol/L Carbon Dioxide (21.0-32.0) mmol/L BUN (7.0-18.0) mg/dL Creatinine (0.6-1.0) mg/dL Est Cr Clr Drug Dosing mL/min Estimated GFR (MDRD) ml/min Glucose (74-106) mg/dL Calcium (8.5-10.1) mg/dL Total Bilirubin (0.2-1.0) mg/dL AST (15-37) IU/L ALT (14-63) IU/L Alkaline Phosphatase (46-116) U/L Troponin I (0.000-0.056) ng/mL Total Protein (6.4-8.2) g/dL Albumin (3.4-5.0) g/dL Globulin (2.0-3.5) g/dL Albumin/Globulin Ratio (1.3-2.8) Amylase (25-115) U/L Lipase (73-393) U/L Urine Color YELLOW Urine Appearance CLEAR Urine pH 6.0 (5.0-8.0) Ur Specific [place] 1.025 (1.001-1.035) Urine Protein NEGATIVE (NEGATIVE) mg/dL Urine Glucose (UA) NEGATIVE (NEGATIVE) mg/dL Urine Ketones TRACE H (NEGATIVE) mg/dL Urine Occult Blood NEGATIVE (NEGATIVE) Urine Nitrite NEGATIVE (NEGATIVE) Urine Bilirubin NEGATIVE (NEGATIVE) Urine Urobilinogen 0.2 (<2.0) EU/dL Ur Leukocyte Esterase NEGATIVE (NEGATIVE) Urine RBC 0-2 (0-2/HPF) Urine WBC 3-5 (0-5/HPF) Ur Epithelial Cells MODERATE (NONE-FEW) Urine Bacteria FEW (NEGATIVE) Urine Opiates Screen NEGATIVE (NEGATIVE) Ur Oxycodone Screen NEGATIVE (NEGATIVE) Urine Methadone Screen NEGATIVE (NEGATIVE) Ur Barbiturates Screen NEGATIVE (NEGATIVE) Ur Phencyclidine Scrn NEGATIVE (NEGATIVE) Ur Amphetamine Screen NEGATIVE (NEGATIVE) U Methamphetamines Scrn NEGATIVE (NEGATIVE) U Benzodiazepines Scrn NEGATIVE (NEGATIVE) U Cocaine Metab Screen NEGATIVE (NEGATIVE) U Marijuana (THC) Screen NEGATIVE (NEGATIVE) Meds: Medications Generic Name Dose Route Start Last Admin Trade Name Freq PRN Reason Stop Dose Admin Sodium Chloride 10 ml 08/08/17 20:35 Saline Flush FLUSH ASDIRECTED PRN Keep Vein Open Sodium Chloride 2.5 ml 08/08/17 20:35 Saline Flush FLUSH ASDIRECTED PRN Keep Vein Open Sodium Chloride 10 ml 08/08/17 20:44 Saline Flush FLUSH ASDIRECTED PRN Keep Vein Open Sodium Chloride 2.5 ml 08/08/17 20:44 Saline Flush FLUSH ASDIRECTED PRN Keep Vein Open Departure - Departure Time of Disposition: 21:53 Disposition: Home, Self-Care 01 Condition: Fair Clinical Impression: Abdominal pain Qualifiers: Abdominal location: right upper quadrant Qualified Code(s): R10.11 - Right upper quadrant pain Colon cancer Qualifiers: Colon location: ascending Qualified Code(s): C18.2 - Malignant neoplasm of ascending colon - Discharge Information Referrals: Everardo Porter MD [Primary Care Provider] - Forms: ED Department Discharge Additional Instructions: My general discharge The following information is given to patients seen in the emergency department who are being discharged to home. This information is to outline your options for follow-up care. We provide all patients seen in our emergency department with a follow-up referral. The need for follow-up, as well as the timing and circumstances, are variable depending upon the specifics of your emergency department visit. If you don't have a primary care physician on staff, we will provide you with a referral. We always advise you to contact your personal physician following an emergency department visit to inform them of the circumstance of the visit and for follow-up with them and/or the need for any referrals to a consulting specialist. The emergency department will also refer you to a specialist when appropriate. This referral assures that you have the opportunity for follow-up care with a specialist. All of these measure are taken in an effort to provide you with optimal care, which includes your follow-up. Under all circumstances we always encourage you to contact your private physician who remains a resource for coordinating your care. When calling for follow-up care, please make the office aware that this follow-up is from your recent emergency room visit. If for any reason you are refused follow-up, please contact the [facility] Emergency Department at and asked to speak to the emergency department charge nurse. My General Surgery [facility] Specialty Care - General Surgery Professional Building [address] [place] [address], [address] [place] [address] Call the above number and asked for Dr. Johnson, surgeon. Be sure to tell them that Dr. Man spoke with Dr. Johnson and he is aware of the patient. Would request to be seen as soon as possible for concerns of primary colonic neoplasm. Follow-up with primary care physician Return to emergency department if any new or worsening symptoms. <Ravi Man - Last Filed: 08/08/17 23:33> ED HPI GENERAL MEDICAL PROBLEM - General Source of Information: Reports: Patient, Family History Limitations: Reports: No Limitations - History of Present Illness INITIAL COMMENTS - FREE TEXT/NARRATIVE: This is Dr. Man taking over patient care at 2200. I have been briefed on patient including history, physical, labs, and diagnostic procedures. I personally examined the patient as well as reviewed all the above. CBC, CMP, amylase, lipase, and chest x-ray were unremarkable other than some chronic kidney disease with a creatinine of 1.3 and decreased GFR but nothing significantly new. However, CT did show a segment of the ascending colon demonstrating irregular wall thickening and luminal narrowing with adjacent stranding most concerning for a primary colonic neoplasm. There was also subcentimeter adjacent lymph nodes. In addition there was a soft tissue density extending towards the duodenum, this was unclear if related to the colonic segment wall or extracolonic. In addition there was borderline prominence of the appendix without significant periappendiceal changes most likely normal for this patient as well as normal on clinical exam as patient pain was mostly mid right quadrant. There was also colonic diverticulosis without diverticulitis. No obstructive uropathy was seen. I did discuss the case with Dr. Johnson, on- call surgeon, who will see the patient as an outpatient in his clinic to discuss further intervention and therapy. Impression: Right mid quadrant pain Suspect primary colon cancer ED ROS GENERAL - Review of Systems Review Of Systems: ROS reveals no pertinent complaints other than HPI. ED EXAM, GI/ABD - Physical Exam Exam: See Below Departure - Departure Condition: Good
[2017-08-08 21:00] LABS: CHLORIDE,CL 104 mmol/L (98-107); SODIUM,NA 141 mmol/L (136-145)
--- NOTE | 2017-08-09 19:08 | CR ---
EXAM DATE: 08/08/17 PATIENT'S AGE: 77 Patient: ALEXA SALVADOR Facility: [place], [place] Site . Site : 1940 Study: XRay Chest [id number]/1/2018 9:39:47 PM Ordering Physician: Doctor Joy Final Report: INDICATION: Pain. Shortness of breath. TECHNIQUE: Chest 1 view. COMPARISON: None FINDINGS: Cardiovascular and mediastinum: Heart size and vasculature are normal in caliber and appearance. Mediastinum is within normal limits. Lungs and pleural space: Lungs are clear. No sign of infiltrate or mass. No sign of pleural effusion. No pneumothorax. Bones and soft tissues: No significant findings. IMPRESSION: Unremarkable chest. Dictated by Vasiliy Aponte MD @ Aug 08 2017 9:47PM (Electronic Signature) Report Signed by Proxy. TWYLA
--- NOTE | 2017-08-09 19:08 | CT ---
EXAM DATE: 08/08/17 PATIENT'S AGE: 77 Patient: ALEXA SALVADOR Facility: [place], [place] Site . Site : 1940 Study: CT Abdomen/Pelvis [id number]/1/2018 9:41:54 PM Ordering Physician: Doctor Joy Final Report: INDICATION: Pain TECHNIQUE: CT abdomen and pelvis without contrast. COMPARISON: None available FINDINGS: Lower chest: A calcified right lower lobe granuloma. Minor lingular subsegmental atelectasis or scarring. A moderate hiatal hernia. Liver: Unremarkable. Spleen: A small calcified splenic granuloma. Pancreas: Unremarkable. Gallbladder and bile ducts: Unremarkable. Adrenal glands: Unremarkable. Kidneys: No kidney or ureteral stones and no hydronephrosis. GI tract: No bowel obstruction. Mild prominence of the appendix measuring up to 8 millimeters, however without significant periappendiceal changes. An irregular segment of the ascending colon demonstrating wall thickening and luminal narrowing with adjacent stranding and several adjacent subcentimeter lymph nodes, most concerning for a primary colonic neoplasm. A soft tissue density extending from the posteromedial aspect of this segment towards the descending duodenum, unclear if related to the colonic wall or if extracolonic. Left colonic diverticulosis without diverticulitis. Vascular structures: Atherosclerotic changes. 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 Lymph nodes: No abnormally enlarged lymph nodes. Miscellaneous: No significant free fluid or free air. Pelvic floor prolapse containing the rectum. Pelvic Organs: Hysterectomy. A contracted bladder. Bones: Unremarkable for age. IMPRESSION: A segment of ascending colon demonstrating irregular wall thickening and luminal narrowing with adjacent stranding, most concerning for a primary colonic neoplasm, with subcentimeter adjacent lymph nodes. A soft tissue density extending towards the duodenum, unclear if related to the colonic segment wall or extracolonic. Recommend colonoscopic evaluation. Borderline prominence of the appendix, although without significant periappendiceal changes, presumably within normal limits for this patient, however correlate clinically. Colonic diverticulosis without diverticulitis. Pelvic floor prolapse containing the rectum. No obstructive uropathy. Dictated by Kevin Varela MD @ 08/08/2017 10:07:29 PM Please note that all CT scans at this facility use dose modulation, iterative reconstruction, and/or weight-based dosing when appropriate to reduce radiation dose to as low as reasonably achievable. Dictated by: Kevin Varela MD @ 08/08/2017 22:07:36 ----- ADDENDUM ----- The findings were communicated to Dr. Man on 08/08/2017 at the time of dictation. Dictated by Kevin Varela MD @ Aug 08 2017 11:23PM (Electronic Signature) Report Signed by Proxy. [facility]
== END 2017-08-08 23:40 | disposition home or self-care (01) ==
LOC: MW.ED 20:16
DX: C18.2 Malignant neoplasm of ascending colon (principal); J44.9 Chronic obstructive pulmonary disease, unspecified; Z87.891 Personal history of nicotine dependence; Z88.8 Allergy status to other drugs, medicaments and biological substances; Z79.899 Other long term (current) drug therapy; Z88.5 Allergy status to narcotic agent
CPT/HCPCS: 71045; 71045-26; 74176; 74176-26; 80053; 80305-QW; 81001; 82150; 83690; 84484; 85025; 85610; 99283; 99284-25